=== PATIENT | female | born 1935 | race Caucasian/White ===

== ENCOUNTER 2020-07-20 09:58 | Inpatient (IN) | payer MEDICARE, BC ==
[~2020-07-20] VITALS: Ht 157.5 cm; Wt 42.9 kg
[2020-07-20] VITALS (25 sets, daily range): BP systolic 78–164; BP diastolic 32–90
[~2020-07-20 09:58] MED LIST: ASPI-630 PO; FURO-68 PO; LEVO500T59 PO; LISI-517 PO; METO-239 PO
[2020-07-20] MEDS ORDERED: MIDAZOLAM 100mg/100ml NS BAG 100 ML IV PRN (11:15)
[2020-07-20] MEDS ORDERED: NOREPINEPHRINE VIAL 8 MG in IV DEXTROSE 5% 250 ML IV PRN (11:15)
[2020-07-20 11:37] LABS: BASE EXCESS COOX -6 mmol/L (-3-3); HCO3 COOX 19 mmol/L (21-28); METHEMOGLOBIN 0.5 % (0.0-1.9); OXYHEMOGLOBIN 93.9 %; PCO2 COOX 39 mmHg (35-46); PO2 COOX 75 mmHg (65-108); SAT O2 COOX 95 % (92-99)
--- NOTE | 2020-07-20 12:04 | RAD ---
EXAM: CHEST ONE VIEW. HISTORY: Intubated, respiratory failure. COMPARISON: 01/01/2018. FINDINGS: A frontal view of the chest is obtained. An endotracheal tube has its tip 4 cm above the ca reece. A nasogastric tube has its proximal sidehole at the gastroesophageal junction, recommend advanc emmiranda. Prominence of the right heart border likely corresponds with aortic ectasia is noted on prior CT. Int erstitial infiltrates are consistent with mild pulmonary edema. Trace pleural effusions are suspected . There is no pneumothorax. The heart is not enlarged. IMPRESSION: 1. Mild pulmonary edema. Trace pleural effusions. 2. Prominence of the right heart border is likely secondary to an ascending aortic aneurysm as seen o n prior CT. CT could further evaluate if this remains unclear. 3. Recommend advancement of the nasogastric tube by 8 cm. Electronically signed by: Nadya Collins MD (07/20/2020 12:01 PM) [id number]
[2020-07-20 12:26] LABS: BASO # 0.1 x10^3/uL (0.0-0.2); BASO % 1 % (0-3); EOS % 0 % (0-3); HEMATOCRIT 31.9 % (36.0-47.0); HEMOGLOBIN 10.6 g/dL (12.0-15.5); LYMPH # 0.4 x10^3/uL (1.0-4.8); LYMPH % 3 % (24-48); MEAN CORPUSCULAR HEMOGLOBIN 29 pg (25-35); MEAN CORPUSCULAR HGB CONC 33 g/dL (31-37); MEAN CORPUSCULAR VOLUME 88 fL (79-100); MONO # 1.7 x10^3/uL (0.0-1.1); MONO % 11 % (0-9); NEUT # 12.8 x10^3/uL (1.8-7.7); NEUT % 86 % (31-73); PLATELET COUNT 220 x10^3/uL (140-400); RED BLOOD COUNT 3.64 x10^6/uL (3.50-5.40); RED CELL DISTRIBUTION WIDTH 15.3 % (11.5-14.5)
[2020-07-20 12:43] LABS: ALBUMIN 2.8 g/dL (3.4-5.0); ALBUMIN/GLOBULIN RATIO 1.1 (1.0-1.7); CREATININE 1.5 mg/dL (0.6-1.0); GFR 32.9; MAGNESIUM 1.6 mg/dL (1.8-2.4); POTASSIUM 3.6 mmol/L (3.5-5.1); TOTAL BILIRUBIN 0.2 mg/dL (0.2-1.0); TOTAL PROTEIN 5.4 g/dL (6.4-8.2)
--- NOTE | 2020-07-20 12:54 | NUR ---
Patient arrived on unit at 1045 via EMS. Patient non-responsive, will posture arms and legs to pain. Order received to redraw all labs, place arterial and central line, and sedation if necessary. Consults notified of admission. Family aware of admission, son at bedside to sign consents for central line.
[2020-07-20 12:55] LABS: PROTHROMBIN TIME PATIENT 14.6 SEC (11.7-14.0)
[2020-07-20] MEDS: levETIRAcetam 500 MG in IV DEXTROSE 5% 100ML 100 ML IV SCH ×2 (13:06→20:42)
[2020-07-20] MEDS: MIDAZOLAM 100mg/100ml NS BAG 100 ML IV PRN ×2 (13:10→21:59)
--- NOTE | 2020-07-20 13:10 | PDOC2 ---
CARDIOLOGY CONSULT NOTE DATE OF SERVICE: DATE: 07/20/20 TIME: 13:10 CHIEF COMPLAINT: Seizure versus syncope. HPI: 85 y.o woman with prior history of NICM, Ascending aortic aneurysm presents to the hospital after cardiac arrest from OSH. Currently intubated, sedated and having status epi.History limited. PMHX: as above SOCHX: Lives by herself. Her son and daughter help with chores. FAMHX: [place] CURRENT MEDS: CV meds reviewed ALLERGIES: Allergies Coded Allergies Type Severity Reaction Last Updated Verified Penicillins Allergy Intermediate 01/01/18 Yes ROS: Unable to be obtained. PHYSICAL EXAM: Vital Signs/I&O: Vital Signs Date Time Temp Pulse Resp B/P (MAP) Pulse Ox O2 Delivery O2 Flow Rate FiO2 07/20/20 12:41 98 Ventilator Physical Exam: Normal cardiac exam. Status epi Soft abdomen. DIAGNOSTIC TESTING: Labs and OSH records reviewed ASSESSMENT: 1. Anoxic brain injury 2. Status epi 3. Prior NICM, ascending aortic aneurysm PLAN: 1. EKG and troponin are not concerning for an acute cardiac process. 2. Await neurologic recovery. Discussed with family at bedside. SENIA CRUZ MD Jul 20, 2020 13:10
--- NOTE | 2020-07-20 13:34 | PDOC2 ---
NEUROLOGY CONSULT Date of Service DOS: DATE: 07/20/20 TIME: 13:26 Reason for Consult Reason for Consult: Post code Referring Physician Referring Physician: Dr. Partida Source Source: Caregiver (son), Chart review History of Present Illness History of Present Illness Patient is an 85-year-old right-handed female found in the [facility] parking lot facedown in a pool of blood, initially bradycardic with a pulse, later deteriorated into pulseless electrical activity. She was coded. Downtime was a few minutes at most. She was intubated. Review of close circuit TV showed patient backing in and out of several parking spots, appeared confused. She got out of her vehicle and appeared to be off balance, falling forward onto the left anterior head at 0555 hours. Appeared to be off balance falling forward onto left anterior head at 0555 hours. Patient found and recovered by ER staff at 0556 and immediately transported inside for evaluation. She has a known cardiomyopathy as well as ascending aortic aneurysm. There is no history of stroke, seizure, or head injury. Past Medical History Cardiovascular: Other (Cardiomyopathy, ascending aortic aneurysm) ENT: Other (Hard of hearing) Past Surgical History Past Surgical History: No pertinent history Family History Family History: Cancer Social History Social History , lives alone, no alcohol or tobacco Current Medications Current Medications Current Medications Midazolam HCl 100 ml @ 1 mls/hr CONT PRN IV SEE I/O RECORD; Start 07/20/20 at 11:30 Fentanyl Citrate 30 ml @ 0 mls/hr CONT PRN IV SEE PROTOCOL; Start 07/20/20 at 11:15 Norepinephrine Bitartrate 8 mg/ Dextrose 258 ml @ 7.372 mls/ hr CONT PRN IV PER PROTOCOL; Start 07/20/20 at 11:15 Fentanyl Citrate 30 ml @ 0 mls/hr CONT PRN IV SEE PROTOCOL; Start 07/20/20 at 11:15; Stop 07/20/20 at 11:13; Status DC Chlorhexidine Gluconate (Peridex) 15 ml BID MM ; Start 07/20/20 at 21:00 Midazolam HCl 100 ml @ 0 mls/hr CONT PRN IV SEE PROTOCOL; Start 07/20/20 at 11:15; Stop 07/20/20 at 11:13; Status DC Norepinephrine Bitartrate 8 mg/ Dextrose 258 ml @ 8.127 mls/ hr CONT PRN IV PER PROTOCOL; Start 07/20/20 at 11:15; Stop 07/20/20 at 11:13; Status DC Levetiracetam 500 mg/Dextrose 105 ml @ 420 mls/hr Q12HR IV ; Start 07/20/20 at 12:45 Active Scripts Active Levaquin (Levofloxacin) 500 Mg Tablet 1 Tab PO DAILY 7 Days Lasix (Furosemide) 40 Mg Tablet 1 Tab PO DAILY 30 Days Aspirin 81 Mg Tab.chew 1 Tab PO DAILY 30 Days Metoprolol Succinate ( Xl ) (Metoprolol Succinate) 25 Mg Tab.er.24h 1 Tab PO DAILY 30 Days Lisinopril 5 Mg Tablet 1 Tab PO DAILY 3 Days Allergies Allergies: Coded Allergies: Penicillins (Verified Allergy, Intermediate, 01/01/18) ROS Review of System Negative for fever, chills, weight loss, shortness of breath, chest pain, indigestion, hematochezia, melena, and dysuria. Full 14-point review of systems is negative. Physical Exam Physical Examination General: Well-developed, well-nourished white female in no acute distress HEENT: Normocephalic andatraumatic. Temporal arteriespulsatile and nontender. Neck: Supple without bruit, no meningismus Musculoskeletal: Stability:see neurologic. Gait exam:see neurologic. Tone:see neurologic.Strength:see neurologic. Neurological: Mental Status:orientation, memory, attention span/concentration, language, fund of knowledge: Intubated, no verbal response. Cranial Nerves:Pupils equal and reactive to light, extraocular movements areintact, There is no facial asymmetry.All other cranial related problems are negative except as mentioned before.Reflexes:2+ and symmetric with silent plantar responses. Motor:Postures to pain. Coordination and gait:Not cooperative. Sensory:Not co operative. Vitals VITALS Vital Signs Date Time Temp Pulse Resp B/P (MAP) Pulse Ox O2 Delivery O2 Flow Rate FiO2 07/20/20 13:00 96 18 154/58 (90) 98 Ventilator 07/20/20 10:45 99.0 99.0 Labs Labs [facility] labs Test 07/20/20 06:01 07/20/20 06:03 07/20/20 06:28 07/20/20 06:45 Glucose (Fingerstick) 95 mg/dL Sodium Level 146 mmol/L Potassium Level 4.2 mmol/L Chloride Level 108 mmol/L Carbon Dioxide Level 17 mmol/L Anion Gap 21 Blood Urea Nitrogen 16 mg/dL Creatinine 1.5 mg/dL Estimated GFR (Cockcroft-Gault) 32.9 BUN/Creatinine Ratio 11 Glucose Level 186 mg/dL Calcium Level 9.4 mg/dL Total Bilirubin 0.3 mg/dL Aspartate Amino Transf (AST/SGOT) 28 U/L Alanine Aminotransferase (ALT/SGPT) 34 U/L Alkaline Phosphatase 88 U/L Troponin I Quantitative 0.029 ng/mL HT-Mey-C-Type Natriuretic Peptide 70461 pg/mL Total Protein 7.3 g/dL Albumin 3.5 g/dL Albumin/Globulin Ratio 0.9 Urine Opiates Screen Neg Urine Methadone Screen Neg Urine Barbiturates Neg Urine Phencyclidine Screen Neg Urine Amphetamine/Methamphetamine Neg Urine Benzodiazepines Screen Neg Urine Cocaine Screen Neg Urine Cannabinoids Screen Neg Urine Ethyl Alcohol Neg White Blood Count 8.1 x10^3/uL Red Blood Count 3.35 x10^6/uL Hemoglobin 9.9 g/dL Hematocrit 31.6 % Mean Corpuscular Volume 94 fL Mean Corpuscular Hemoglobin 30 pg Mean Corpuscular Hemoglobin Concent 31 g/dL Red Cell Distribution Width 15.8 % Platelet Count 173 x10^3/uL Neutrophils (%) (Auto) 38 % Lymphocytes (%) (Auto) 53 % Monocytes (%) (Auto) 6 % Eosinophils (%) (Auto) 3 % Basophils (%) (Auto) 1 % Neutrophils # (Auto) 3.1 x10^3uL Lymphocytes # (Auto) 4.3 x10^3/uL Monocytes # (Auto) 0.5 x10^3/uL Eosinophils # (Auto) 0.2 x10^3/uL Basophils # (Auto) 0.1 x10^3/uL Segmented Neutrophils % 30 % Band Neutrophils % 2 % Lymphocytes % 64 % Monocytes % 2 % Eosinophils % 1 % Metamyelocytes % 1 % Platelet Estimate Adequate Prothrombin Time 12.4 SEC Prothromb Time International Ratio 1.2 Activated Partial Thromboplast Time 35 SEC Test 07/20/20 07:35 Blood Gas pH 7.26 Blood Gas PCO2 31 mmHg Blood Gas PO2 94 mmHg Blood Gas HCO3 14 mmol/L Arterial Bld O2 Saturation (Calc) 97 % FiO2 50 % Laboratory Tests Test 07/20/20 11:05 6/10/21 12:10 O2 Saturation 95 % (92-99) Arterial Blood pH 7.32 (7.35-7.45) Arterial Blood pCO2 at Patient Temp 39 mmHg (35-46) Arterial Blood pO2 at Patient Temp 75 mmHg (65-108) Arterial Blood HCO3 19 mmol/L (21-28) Arterial Blood Base Excess -6 mmol/L (-3-3) Oxyhemoglobin 93.9 % Methemoglobin 0.5 % (0.0-1.9) Carbon Monoxide, Quantitative 0.3 % (0.0-1.9) FiO2 100%vent White Blood Count 15.0 x10^3/uL (4.0-11.0) Red Blood Count 3.64 x10^6/uL (3.50-5.40) Hemoglobin 10.6 g/dL (12.0-15.5) Hematocrit 31.9 % (36.0-47.0) Mean Corpuscular Volume 88 fL (79-100) Mean Corpuscular Hemoglobin 29 pg (25-35) Mean Corpuscular Hemoglobin Concent 33 g/dL (31-37) Red Cell Distribution Width 15.3 % (11.5-14.5) Platelet Count 220 x10^3/uL (140-400) Neutrophils (%) (Auto) 86 % (31-73) Lymphocytes (%) (Auto) 3 % (24-48) Monocytes (%) (Auto) 11 % (0-9) Eosinophils (%) (Auto) 0 % (0-3) Basophils (%) (Auto) 1 % (0-3) Neutrophils # (Auto) 12.8 x10^3/uL (1.8-7.7) Lymphocytes # (Auto) 0.4 x10^3/uL (1.0-4.8) Monocytes # (Auto) 1.7 x10^3/uL (0.0-1.1) Eosinophils # (Auto) 0.0 x10^3/uL (0.0-0.7) Basophils # (Auto) 0.1 x10^3/uL (0.0-0.2) Prothrombin Time 14.6 SEC (11.7-14.0) Prothromb Time International Ratio 1.1 (0.8-1.1) Sodium Level 146 mmol/L (136-145) Potassium Level 3.6 mmol/L (3.5-5.1) Chloride Level 112 mmol/L (98-107) Carbon Dioxide Level 21 mmol/L (21-32) Anion Gap 13 (6-14) Blood Urea Nitrogen 19 mg/dL (7-20) Creatinine 1.5 mg/dL (0.6-1.0) Estimated GFR (Cockcroft-Gault) 32.9 BUN/Creatinine Ratio 13 (6-20) Glucose Level 255 mg/dL (70-99) Lactic Acid Level 3.4 mmol/L (0.4-2.0) Calcium Level 7.0 mg/dL (8.5-10.1) Magnesium Level 1.6 mg/dL (1.8-2.4) Total Bilirubin 0.2 mg/dL (0.2-1.0) Aspartate Amino Transf (AST/SGOT) 252 U/L (15-37) Alanine Aminotransferase (ALT/SGPT) 270 U/L (14-59) Alkaline Phosphatase 78 U/L (46-116) Troponin I Quantitative 0.196 ng/mL (0.000-0.055) Total Protein 5.4 g/dL (6.4-8.2) Albumin 2.8 g/dL (3.4-5.0) Albumin/Globulin Ratio 1.1 (1.0-1.7) Laboratory Tests Test 07/20/20 11:05 07/20/20 12:10 O2 Saturation 95 % (92-99) Arterial Blood pH 7.32 (7.35-7.45) Arterial Blood pCO2 at Patient Temp 39 mmHg (35-46) Arterial Blood pO2 at Patient Temp 75 mmHg (65-108) Arterial Blood HCO3 19 mmol/L (21-28) Arterial Blood Base Excess -6 mmol/L (-3-3) Oxyhemoglobin 93.9 % Methemoglobin 0.5 % (0.0-1.9) Carbon Monoxide, Quantitative 0.3 % (0.0-1.9) FiO2 100%vent White Blood Count 15.0 x10^3/uL (4.0-11.0) Red Blood Count 3.64 x10^6/uL (3.50-5.40) Hemoglobin 10.6 g/dL (12.0-15.5) Hematocrit 31.9 % (36.0-47.0) Mean Corpuscular Volume 88 fL (79-100) Mean Corpuscular Hemoglobin 29 pg (25-35) Mean Corpuscular Hemoglobin Concent 33 g/dL (31-37) Red Cell Distribution Width 15.3 % (11.5-14.5) Platelet Count 220 x10^3/uL (140-400) Neutrophils (%) (Auto) 86 % (31-73) Lymphocytes (%) (Auto) 3 % (24-48) Monocytes (%) (Auto) 11 % (0-9) Eosinophils (%) (Auto) 0 % (0-3) Basophils (%) (Auto) 1 % (0-3) Neutrophils # (Auto) 12.8 x10^3/uL (1.8-7.7) Lymphocytes # (Auto) 0.4 x10^3/uL (1.0-4.8) Monocytes # (Auto) 1.7 x10^3/uL (0.0-1.1) Eosinophils # (Auto) 0.0 x10^3/uL (0.0-0.7) Basophils # (Auto) 0.1 x10^3/uL (0.0-0.2) Prothrombin Time 14.6 SEC (11.7-14.0) Prothromb Time International Ratio 1.1 (0.8-1.1) Sodium Level 146 mmol/L (136-145) Potassium Level 3.6 mmol/L (3.5-5.1) Chloride Level 112 mmol/L (98-107) Carbon Dioxide Level 21 mmol/L (21-32) Anion Gap 13 (6-14) Blood Urea Nitrogen 19 mg/dL (7-20) Creatinine 1.5 mg/dL (0.6-1.0) Estimated GFR (Cockcroft-Gault) 32.9 BUN/Creatinine Ratio 13 (6-20) Glucose Level 255 mg/dL (70-99) Lactic Acid Level 3.4 mmol/L (0.4-2.0) Calcium Level 7.0 mg/dL (8.5-10.1) Magnesium Level 1.6 mg/dL (1.8-2.4) Total Bilirubin 0.2 mg/dL (0.2-1.0) Aspartate Amino Transf (AST/SGOT) 252 U/L (15-37) Alanine Aminotransferase (ALT/SGPT) 270 U/L (14-59) Alkaline Phosphatase 78 U/L (46-116) Troponin I Quantitative 0.196 ng/mL (0.000-0.055) Total Protein 5.4 g/dL (6.4-8.2) Albumin 2.8 g/dL (3.4-5.0) Albumin/Globulin Ratio 1.1 (1.0-1.7) Images Images [facility] radiographs: CT head: Study degradation in part on account of motion. No acute intracranial hemorrhage. No mass effect, midline shift or hydrocephalus. No CT evidence for an acute cortical infarction. White matter findings which are nonspecific but most frequently on account of chronic microvascular ischemic change. Intracranial calcific atherosclerosis. Left scalp injury with a localized hematoma at the left frontal region. No depressed calvarial fracture. CT cervical spine: Mild motion degradation. Noting osteopenia no acute cervical spine fracture. Reversal of cervical lordosis centered at C4-C5. Severe discogenic arthrosis at C4-C5. Less pronounced discogenic arthrosis at C3-C4, C5-C6 and C6-C7. Grade 1 anterolisthesis of C3 on C4. Multilevel facet arthrosis and uncovertebral joint hypertrophy. No evidence for severe central canal stenosis. No paraspinous hematoma. Nasogastric and endotracheal intubation. IMPRESSION: CT head: 1. Motion degradation. Diagnostic utility is mostly maintained. 2. Scalp injury on the left without an associated depressed calvarial fracture or acute intracranial hemorrhage. CT cervical spine: 1. Mild motion degradation. Taking this into consideration in addition to osteopenia no acute fracture. No paraspinous hematoma is identified to suggest occult osseous injury. 2. Multilevel spondylosis greatest at C4-C5. No evidence for severe central canal stenosis. Electronically signed by: VEGA MUNOZ MD (07/20/2020 7:32 AM) [facility] ////////////////////////////// EXAMINATION: CT chest, abdomen and pelvis with IV contrast. INDICATION:85 years, Female, falling down, left for head hematoma. Evaluate for intrathoracic and abdominal injury. TECHNIQUE: Axial CT images of the chest, abdomen and pelvis were obtained. Coronal and sagittal reformatted performed. COMPARISON: None. Exposure: One or more of the following individualized dose reduction techniques were utilized for this examination: 1. Automated exposure control 2. Adjustment of the mA and/or kV according to patient size 3. Use of iterative reconstruction technique. FINDINGS: CHEST: Visualized thyroid and esophagus are unremarkable. Enteric tube seen within the esophagus with the tip terminates within the proximal stomach. Cardiomegaly with trace pericardial effusion. Mild coronary artery atherosclerotic calcifications. Ascending aortic aneurysm measures up to 5.0 cm. Mild atherosclerotic calcifications of the thoracic aorta. Pulmonary artery is normal in caliber. No intrathoracic lymphadenopathy by size criteria. Few calcified mediastinal lymph nodes. Endotracheal tube tip locates above the janina. Central airways are patent. Moderate right and small left pleural effusions with associated compressive atelectasis. Diffuse interlobular septal thickening with a mosaic attenuation and groundglass opacities, particularly in the left upper lobe. Bibasilar subsegmental atelectasis. No suspicious pulmonary nodule. Diffuse bronchial wall thickening in the lower lobes. No pneumothorax. ABDOMEN/PELVIS: No hepatomegaly. Normal homogeneous enhancement of the liver with no suspicious focal hepatic lesion. Moderate periportal edema. Unremarkable gallbladder. No biliary ductal dilation. Calcified granulomas in the spleen. Moderate atrophic pancreatic parenchyma. Nodular thickening of the left gland without discrete nodule. The right adrenal gland is normal. No hydronephrosis or nephrolithiasis in either kidney. Moderate aortoiliac atherosclerotic calcifications. No significant luminal narrowing or dilation. Distended intrahepatic IVC. Portal vein and mesenteric arteries are patent. No abdominopelvic lymphadenopathy by size criteria. Small abdominal ascites. No pneumoperitoneum. No bowel obstructio n or wall thickening. Underdistended urinary bladder with Garcia's catheter in place and nondependent gas. Unremarkable uterus. No suspicious pelvic masses. MUSCULOSKELETAL: Lucent line in the lateral aspect of the left third rib (series 4 image 25). Dif fuse osteopenia. Severe multilevel degenerative changes in the spine. Moderate dextroscoliosis of lumbar spine. IMPRESSION: 1. Lucent line along the lateral aspect of the left third rib, may be artifactual from motion artifact or nondisplaced fracture. Consider correlation with point of tenderness. 2. Otherwise, no acute traumatic injury to the chest, abdomen or pelvis. 3. Findings of fluid overload with moderate to severe pulmonary edema, moderate right and small left pleural effusions, periportal edema and trace amount of abdominal ascites. Underlying pneumonia in left upper lobe cannot be excluded. 4. Ascending aortic aneurysm measures up to 5.0 cm in diameter. 5. Other chronic/incidental finding, as described above. Assessment/Plan Assessment/Plan Impression Anoxic encephalopathy After I saw the patient she had seizure activity Recommendations: Was not placed on hypothermia protocol Levetiracetam Discussed with patient's son Thank you for letting me help with the patient's care ANUEL BOLES MD Jul 20, 2020 13:34
--- NOTE | 2020-07-20 13:50 | PDOC ---
PULMONARY PROGRESS NOTES DATE: 07/20/20 TIME: 13:50 Vitals Vital Signs Date Time Temp Pulse Resp B/P (MAP) Pulse Ox O2 Delivery O2 Flow Rate FiO2 07/20/20 13:17 98 Ventilator 07/20/20 13:00 96 18 154/58 (90) 07/20/20 10:45 99.0 99.0 Labs Laboratory Tests Test 07/20/20 11:05 07/20/20 12:10 O2 Saturation 95 % (92-99) Arterial Blood pH 7.32 (7.35-7.45) Arterial Blood pCO2 at Patient Temp 39 mmHg (35-46) Arterial Blood pO2 at Patient Temp 75 mmHg (65-108) Arterial Blood HCO3 19 mmol/L (21-28) Arterial Blood Base Excess -6 mmol/L (-3-3) Oxyhemoglobin 93.9 % Methemoglobin 0.5 % (0.0-1.9) Carbon Monoxide, Quantitative 0.3 % (0.0-1.9) FiO2 100%vent White Blood Count 15.0 x10^3/uL (4.0-11.0) Red Blood Count 3.64 x10^6/uL (3.50-5.40) Hemoglobin 10.6 g/dL (12.0-15.5) Hematocrit 31.9 % (36.0-47.0) Mean Corpuscular Volume 88 fL (79-100) Mean Corpuscular Hemoglobin 29 pg (25-35) Mean Corpuscular Hemoglobin Concent 33 g/dL (31-37) Red Cell Distribution Width 15.3 % (11.5-14.5) Platelet Count 220 x10^3/uL (140-400) Neutrophils (%) (Auto) 86 % (31-73) Lymphocytes (%) (Auto) 3 % (24-48) Monocytes (%) (Auto) 11 % (0-9) Eosinophils (%) (Auto) 0 % (0-3) Basophils (%) (Auto) 1 % (0-3) Neutrophils # (Auto) 12.8 x10^3/uL (1.8-7.7) Lymphocytes # (Auto) 0.4 x10^3/uL (1.0-4.8) Monocytes # (Auto) 1.7 x10^3/uL (0.0-1.1) Eosinophils # (Auto) 0.0 x10^3/uL (0.0-0.7) Basophils # (Auto) 0.1 x10^3/uL (0.0-0.2) Prothrombin Time 14.6 SEC (11.7-14.0) Prothromb Time International Ratio 1.1 (0.8-1.1) Sodium Level 146 mmol/L (136-145) Potassium Level 3.6 mmol/L (3.5-5.1) Chloride Level 112 mmol/L (98-107) Carbon Dioxide Level 21 mmol/L (21-32) Anion Gap 13 (6-14) Blood Urea Nitrogen 19 mg/dL (7-20) Creatinine 1.5 mg/dL (0.6-1.0) Estimated GFR (Cockcroft-Gault) 32.9 BUN/Creatinine Ratio 13 (6-20) Glucose Level 255 mg/dL (70-99) Lactic Acid Level 3.4 mmol/L (0.4-2.0) Calcium Level 7.0 mg/dL (8.5-10.1) Magnesium Level 1.6 mg/dL (1.8-2.4) Total Bilirubin 0.2 mg/dL (0.2-1.0) Aspartate Amino Transf (AST/SGOT) 252 U/L (15-37) Alanine Aminotransferase (ALT/SGPT) 270 U/L (14-59) Alkaline Phosphatase 78 U/L (46-116) Troponin I Quantitative 0.196 ng/mL (0.000-0.055) Total Protein 5.4 g/dL (6.4-8.2) Albumin 2.8 g/dL (3.4-5.0) Albumin/Globulin Ratio 1.1 (1.0-1.7) Laboratory Tests Test 07/20/20 11:05 07/20/20 12:10 O2 Saturation 95 % (92-99) Arterial Blood pH 7.32 (7.35-7.45) Arterial Blood pCO2 at Patient Temp 39 mmHg (35-46) Arterial Blood pO2 at Patient Temp 75 mmHg (65-108) Arterial Blood HCO3 19 mmol/L (21-28) Arterial Blood Base Excess -6 mmol/L (-3-3) Oxyhemoglobin 93.9 % Methemoglobin 0.5 % (0.0-1.9) Carbon Monoxide, Quantitative 0.3 % (0.0-1.9) FiO2 100%vent White Blood Count 15.0 x10^3/uL (4.0-11.0) Red Blood Count 3.64 x10^6/uL (3.50-5.40) Hemoglobin 10.6 g/dL (12.0-15.5) Hematocrit 31.9 % (36.0-47.0) Mean Corpuscular Volume 88 fL (79-100) Mean Corpuscular Hemoglobin 29 pg (25-35) Mean Corpuscular Hemoglobin Concent 33 g/dL (31-37) Red Cell Distribution Width 15.3 % (11.5-14.5) Platelet Count 220 x10^3/uL (140-400) Neutrophils (%) (Auto) 86 % (31-73) Lymphocytes (%) (Auto) 3 % (24-48) Monocytes (%) (Auto) 11 % (0-9) Eosinophils (%) (Auto) 0 % (0-3) Basophils (%) (Auto) 1 % (0-3) Neutrophils # (Auto) 12.8 x10^3/uL (1.8-7.7) Lymphocytes # (Auto) 0.4 x10^3/uL (1.0-4.8) Monocytes # (Auto) 1.7 x10^3/uL (0.0-1.1) Eosinophils # (Auto) 0.0 x10^3/uL (0.0-0.7) Basophils # (Auto) 0.1 x10^3/uL (0.0-0.2) Prothrombin Time 14.6 SEC (11.7-14.0) Prothromb Time International Ratio 1.1 (0.8-1.1) Sodium Level 146 mmol/L (136-145) Potassium Level 3.6 mmol/L (3.5-5.1) Chloride Level 112 mmol/L (98-107) Carbon Dioxide Level 21 mmol/L (21-32) Anion Gap 13 (6-14) Blood Urea Nitrogen 19 mg/dL (7-20) Creatinine 1.5 mg/dL (0.6-1.0) Estimated GFR (Cockcroft-Gault) 32.9 BUN/Creatinine Ratio 13 (6-20) Glucose Level 255 mg/dL (70-99) Lactic Acid Level 3.4 mmol/L (0.4-2.0) Calcium Level 7.0 mg/dL (8.5-10.1) Magnesium Level 1.6 mg/dL (1.8-2.4) Total Bilirubin 0.2 mg/dL (0.2-1.0) Aspartate Amino Transf (AST/SGOT) 252 U/L (15-37) Alanine Aminotransferase (ALT/SGPT) 270 U/L (14-59) Alkaline Phosphatase 78 U/L (46-116) Troponin I Quantitative 0.196 ng/mL (0.000-0.055) Total Protein 5.4 g/dL (6.4-8.2) Albumin 2.8 g/dL (3.4-5.0) Albumin/Globulin Ratio 1.1 (1.0-1.7) Medications Active Scripts Medications Dose Route/Sig Max Daily Dose Days Date Category Levaquin (Levofloxacin) 500 Mg Tablet 1 Tab PO DAILY 7 01/03/18 Rx Lasix (Furosemide) 40 Mg Tablet 1 Tab PO DAILY 30 01/03/18 Rx Aspirin 81 Mg Tab.chew 1 Tab PO DAILY 30 01/03/18 Rx Metoprolol Succinate ( Xl ) (Metoprolol Succinate) 25 Mg Tab.er.24h 1 Tab PO DAILY 30 01/03/18 Rx Lisinopril 5 Mg Tablet 1 Tab PO DAILY 3 01/03/18 Rx Impression . Full note dictated Respiratory failure secondary to out of hospital arrest suspect arrhythmia Patient with known cardiomyopathy Acute on chronic systolic heart failure Suspect anoxic brain injury leading to seizures. See orders CLAUDIA PEREIRA MD Jul 20, 2020 13:50
[2020-07-20 14:12] LABS: % BANDS 15 % (0-9); % LYMPHS 1 % (24-48); % MONOS 10 % (0-10); % SEGS 74 % (35-66); PLT ESTIMATE ADEQUATE (ADEQUATE)
[2020-07-20] MEDS ORDERED: LIDOCAINE WITH 8.4% SOD BICARB 3 ML DISP.SYRIN. INJ ONE (14:15)
--- NOTE | 2020-07-20 15:21 | RAD ---
Procedure: Ultrasound-guided placement of right internal jugular triple-lumen central line Sterility: All elements of maximal sterile barrier technique including the use of a cap, mask, steril e gown, sterile gloves, large sterile sheet, appropriate hand hygiene, and 2% chlorhexidine for cutan eous antisepsis (or acceptable alternative antiseptic per current guidelines) were followed for this procedure. Consent: The procedure was explained in its entirety to the patient or the patients designated repres entative by a member of the treatment team, including a discussion of the risks, benefits and commonl y accepted alternatives to the procedure, as well as the expected consequences of no therapy whatsoev er. Discussion of the risks included, but was not limited to, those that are most frequent and thos e that are rare but possibly severe or life-threatening, as well as the possibility of unforeseen com plications. Technique and Findings: Following informed consent, the patient was prepped and draped in the usual s terile fashion. Ultrasound interrogation of the right neck revealed patency and compressibility of t he right internal jugular vein. A 21-gauge micropuncture was then used to gain access to this vein u nder ultrasound guidance. A hard copy ultrasound image was recorded. A guidewire was advanced centra lly over which, following dilatation, a triple-lumen central line catheter was placed. The new chuy ter was found to flush and aspirate normally. The catheter was secured in place. Sterile dressings we re applied. No immediate complications were identified. IMPRESSION: Ultrasound-guided placement, right internal jugular triple-lumen central line Electronically signed by: Meliton Roland MD (07/20/2020 3:18 PM) [id number]
--- NOTE | 2020-07-20 15:36 | RAD ---
EXAM: XR CHEST 1V 07/20/2020 2:18 PM CLINICAL INDICATION: Post central line placement COMPARISON: Chest radiograph 07/20/2020 at 11:43 AM TECHNIQUE: AP supine view of the chest FINDINGS: The endotracheal tube is unchanged terminating 4 cm above the janina. A new right internal jugular central venous catheter tip projects over the high right atrium. The heart is normal in size . Prominence of right heart border is less conspicuous on this exam. Lungs are hyperexpanded. Diffuse interstitial opacities have slightly decreased. No pleural effusion or pneumothorax. Probable calcif ied granulomas in the lung bases. There is pleural thickening at the lung apices. IMPRESSION: 1. New right internal jugular central venous catheter in appropriate position. No pneumothorax. 2. Slightly decreased interstitial opacities and prominence of right heart border. Electronically signed by: Yessica Orellana MD (07/20/2020 3:34 PM) [id number]
--- NOTE | 2020-07-20 17:02 | PDOC1 ---
History and Physical Date of Admission Date of Admission DATE: 07/20/20 TIME: 16:53 Identification/Chief Complaint Chief Complaint Post Code Source Source: Chart review History of Present Illness History of Present Illness Patient is a 85-year-old female presents as a transfer from [facility] ER status post code. Discussed with [facility] ER attending, not much is known about patient but she was found in ER per him face down in for blood. Upon evaluation at [facility] she was nonverbal with GCS 3. She presented and PEA and patient coded appropriately. Labs from [facility] showed sodium 146, bicarbonate 17, creatinine 1.5, BNP 10,057, hemoglobin 9.9, hematocrit 31.6, lactic acid 7.5, pH 7.29, PCO2 39, PO2 68. She was coded for roughly 15 minutes, treated with 2 L normal saline, and then intubated on epinephrine drip. Will admit patient to ICU for further medical management. Past Medical History Past Medical History Unable to obtain at this time due to clinical condition Cardiovascular: Other (Cardiomyopathy, ascending aortic aneurysm) ENT: Other (Hard of hearing) Past Surgical History Past Surgical History Unable to obtain at this time due to clinical condition Past Surgical History: No pertinent history Family History Family History Per chart review, anxiety disorder, asthma, cancer Social History Smoke: No ALCOHOL: occassional Drugs: None Current Medications Current Medications Current Medications Midazolam HCl 100 ml @ 1 mls/hr CONT PRN IV SEE I/O RECORD Last administered on 07/20/20at 13:10; Start 07/20/20 at 11:30 Fentanyl Citrate 30 ml @ 0 mls/hr CONT PRN IV SEE PROTOCOL Last administered on 07/20/20at 13:17; Start 07/20/20 at 11:15 Norepinephrine Bitartrate 8 mg/ Dextrose 258 ml @ 7.372 mls/ hr CONT PRN IV PER PROTOCOL Last administered on 07/20/20at 13:27; Start 07/20/20 at 11:15 Fentanyl Citrate 30 ml @ 0 mls/hr CONT PRN IV SEE PROTOCOL; Start 07/20/20 at 11:15; Stop 07/20/20 at 11:13; Status DC Chlorhexidine Gluconate (Peridex) 15 ml BID MM ; Start 07/20/20 at 21:00 Midazolam HCl 100 ml @ 0 mls/hr CONT PRN IV SEE PROTOCOL; Start 07/20/20 at 11:15; Stop 07/20/20 at 11:13; Status DC Norepinephrine Bitartrate 8 mg/ Dextrose 258 ml @ 8.127 mls/ hr CONT PRN IV PER PROTOCOL; Start 07/20/20 at 11:15; Stop 07/20/20 at 11:13; Status DC Levetiracetam 500 mg/Dextrose 105 ml @ 420 mls/hr Q12HR IV Last administered on 07/20/20at 13:06; Start 07/20/20 at 12:45 Lidocaine HCl (Buffered Lidocaine 1%) 3 ml 1X ONCE INJ ; Start 07/20/20 at 14:15; Stop 07/20/20 at 14:16; Status DC Lorazepam (Ativan Inj) 2 mg STK-MED ONCE .ROUTE ; Start 07/20/20 at 15:41; Stop 07/20/20 at 15:42; Status DC Lorazepam (Ativan Inj) 2 mg 1X ONCE IVP Last administered on 07/20/20at 16:05; Start 07/20/20 at 16:30; Stop 07/20/20 at 16:31; Status DC Active Scripts Active Levaquin (Levofloxacin) 500 Mg Tablet 1 Tab PO DAILY 7 Days Lasix (Furosemide) 40 Mg Tablet 1 Tab PO DAILY 30 Days Aspirin 81 Mg Tab.chew 1 Tab PO DAILY 30 Days Metoprolol Succinate ( Xl ) (Metoprolol Succinate) 25 Mg Tab.er.24h 1 Tab PO DAILY 30 Days Lisinopril 5 Mg Tablet 1 Tab PO DAILY 3 Days Allergies Allergies: Coded Allergies: Penicillins (Verified Allergy, Intermediate, 01/01/18) ROS Review of System Unable to obtain due to clinical condition Physical Exam Physical Exam General: Intubated on mechanical ventilator. No acute distress HEENT: Mild hematoma to left forehead, people equal, round, and minimally reactive to light Lungs: Clear to auscultation, Normal air movement Heart: RRR, no murmurs Cardiovascular: S1, S2 Abdomen: Normal bowel sounds, Soft, No tenderness Extremities: No clubbing, No cyanosis Skin: No rashes, No significant lesion Neuro: Normal tone Psych/Mental Status: Sedated Vitals Vitals Vital Signs Date Time Temp Pulse Resp B/P (MAP) Pulse Ox O2 Delivery O2 Flow Rate FiO2 07/20/20 15:45 98 Ventilator 07/20/20 14:00 94 18 128/73 (91) 07/20/20 10:45 99.0 99.0 Labs Labs Laboratory Tests Test 07/20/20 11:05 07/20/20 12:10 07/20/20 15:20 O2 Saturation 95 % (92-99) Arterial Blood pH 7.32 (7.35-7.45) Arterial Blood pCO2 at Patient Temp 39 mmHg (35-46) Arterial Blood pO2 at Patient Temp 75 mmHg (65-108) Arterial Blood HCO3 19 mmol/L (21-28) Arterial Blood Base Excess -6 mmol/L (-3-3) Oxyhemoglobin 93.9 % Methemoglobin 0.5 % (0.0-1.9) Carbon Monoxide, Quantitative 0.3 % (0.0-1.9) FiO2 100%vent White Blood Count 15.0 x10^3/uL (4.0-11.0) Red Blood Count 3.64 x10^6/uL (3.50-5.40) Hemoglobin 10.6 g/dL (12.0-15.5) Hematocrit 31.9 % (36.0-47.0) Mean Corpuscular Volume 88 fL (79-100) Mean Corpuscular Hemoglobin 29 pg (25-35) Mean Corpuscular Hemoglobin Concent 33 g/dL (31-37) Red Cell Distribution Width 15.3 % (11.5-14.5) Platelet Count 220 x10^3/uL (140-400) Neutrophils (%) (Auto) 86 % (31-73) Lymphocytes (%) (Auto) 3 % (24-48) Monocytes (%) (Auto) 11 % (0-9) Eosinophils (%) (Auto) 0 % (0-3) Basophils (%) (Auto) 1 % (0-3) Neutrophils # (Auto) 12.8 x10^3/uL (1.8-7.7) Lymphocytes # (Auto) 0.4 x10^3/uL (1.0-4.8) Monocytes # (Auto) 1.7 x10^3/uL (0.0-1.1) Eosinophils # (Auto) 0.0 x10^3/uL (0.0-0.7) Basophils # (Auto) 0.1 x10^3/uL (0.0-0.2) Segmented Neutrophils % 74 % (35-66) Band Neutrophils % 15 % (0-9) Lymphocytes % 1 % (24-48) Monocytes % 10 % (0-10) Platelet Estimate Adequate (ADEQUATE) Prothrombin Time 14.6 SEC (11.7-14.0) Prothromb Time International Ratio 1.1 (0.8-1.1) Sodium Level 146 mmol/L (136-145) Potassium Level 3.6 mmol/L (3.5-5.1) Chloride Level 112 mmol/L (98-107) Carbon Dioxide Level 21 mmol/L (21-32) Anion Gap 13 (6-14) Blood Urea Nitrogen 19 mg/dL (7-20) Creatinine 1.5 mg/dL (0.6-1.0) Estimated GFR (Cockcroft-Gault) 32.9 BUN/Creatinine Ratio 13 (6-20) Glucose Level 255 mg/dL (70-99) Lactic Acid Level 3.4 mmol/L (0.4-2.0) 3.7 mmol/L (0.4-2.0) Calcium Level 7.0 mg/dL (8.5-10.1) Magnesium Level 1.6 mg/dL (1.8-2.4) Total Bilirubin 0.2 mg/dL (0.2-1.0) Aspartate Amino Transf (AST/SGOT) 252 U/L (15-37) Alanine Aminotransferase (ALT/SGPT) 270 U/L (14-59) Alkaline Phosphatase 78 U/L (46-116) Troponin I Quantitative 0.196 ng/mL (0.000-0.055) Total Protein 5.4 g/dL (6.4-8.2) Albumin 2.8 g/dL (3.4-5.0) Albumin/Globulin Ratio 1.1 (1.0-1.7) Laboratory Tests Test 07/20/20 11:05 07/20/20 12:10 07/20/20 15:20 O2 Saturation 95 % (92-99) Arterial Blood pH 7.32 (7.35-7.45) Arterial Blood pCO2 at Patient Temp 39 mmHg (35-46) Arterial Blood pO2 at Patient Temp 75 mmHg (65-108) Arterial Blood HCO3 19 mmol/L (21-28) Arterial Blood Base Excess -6 mmol/L (-3-3) Oxyhemoglobin 93.9 % Methemoglobin 0.5 % (0.0-1.9) Carbon Monoxide, Quantitative 0.3 % (0.0-1.9) FiO2 100%vent White Blood Count 15.0 x10^3/uL (4.0-11.0) Red Blood Count 3.64 x10^6/uL (3.50-5.40) Hemoglobin 10.6 g/dL (12.0-15.5) Hematocrit 31.9 % (36.0-47.0) Mean Corpuscular Volume 88 fL (79-100) Mean Corpuscular Hemoglobin 29 pg (25-35) Mean Corpuscular Hemoglobin Concent 33 g/dL (31-37) Red Cell Distribution Width 15.3 % (11.5-14.5) Platelet Count 220 x10^3/uL (140-400) Neutrophils (%) (Auto) 86 % (31-73) Lymphocytes (%) (Auto) 3 % (24-48) Monocytes (%) (Auto) 11 % (0-9) Eosinophils (%) (Auto) 0 % (0-3) Basophils (%) (Auto) 1 % (0-3) Neutrophils # (Auto) 12.8 x10^3/uL (1.8-7.7) Lymphocytes # (Auto) 0.4 x10^3/uL (1.0-4.8) Monocytes # (Auto) 1.7 x10^3/uL (0.0-1.1) Eosinophils # (Auto) 0.0 x10^3/uL (0.0-0.7) Basophils # (Auto) 0.1 x10^3/uL (0.0-0.2) Segmented Neutrophils % 74 % (35-66) Band Neutrophils % 15 % (0-9) Lymphocytes % 1 % (24-48) Monocytes % 10 % (0-10) Platelet Estimate Adequate (ADEQUATE) Prothrombin Time 14.6 SEC (11.7-14.0) Prothromb Time International Ratio 1.1 (0.8-1.1) Sodium Level 146 mmol/L (136-145) Potassium Level 3.6 mmol/L (3.5-5.1) Chloride Level 112 mmol/L (98-107) Carbon Dioxide Level 21 mmol/L (21-32) Anion Gap 13 (6-14) Blood Urea Nitrogen 19 mg/dL (7-20) Creatinine 1.5 mg/dL (0.6-1.0) Estimated GFR (Cockcroft-Gault) 32.9 BUN/Creatinine Ratio 13 (6-20) Glucose Level 255 mg/dL (70-99) Lactic Acid Level 3.4 mmol/L (0.4-2.0) 3.7 mmol/L (0.4-2.0) Calcium Level 7.0 mg/dL (8.5-10.1) Magnesium Level 1.6 mg/dL (1.8-2.4) Total Bilirubin 0.2 mg/dL (0.2-1.0) Aspartate Amino Transf (AST/SGOT) 252 U/L (15-37) Alanine Aminotransferase (ALT/SGPT) 270 U/L (14-59) Alkaline Phosphatase 78 U/L (46-116) Troponin I Quantitative 0.196 ng/mL (0.000-0.055) Total Protein 5.4 g/dL (6.4-8.2) Albumin 2.8 g/dL (3.4-5.0) Albumin/Globulin Ratio 1.1 (1.0-1.7) Images Images XR CHEST 1V History: Reason: cardiac arrest, intubated, et and og placement / Spl. Instructions: / History: Comparison: March 26, 2018 Findings: Diffuse interstitial and alveolar opacities. Small left pleural effusion. No pneumothorax. Unchanged heart size. Biapical pleural thickening, right greater than left. Multilevel thoracolumbar spondylosis with rightward curvature. Endotracheal tube with tip 5.3 cm above the janina. Enteric tube with tip projecting over the proximal stomach and side port within the distal esophagus. Impression: 1. Diffuse interstitial and alveolar opacities, may represent pulmonary edema or infection. 2. Interval placement of enteric tube with tip projecting over the proximal stomach and side port within the distal esophagus. Recommend advancement. Electronically signed by: James Montelongo DO (07/20/2020 6:49 AM) [facility] ////////////////////////////////////// STUDY: CT head and cervical spine without contrast INDICATION: Unwitnessed fall. Forehead hematoma. COMPARISON: None. TECHNIQUE: Axial CT imaging through the head and cervical spine without the use of intravenous contrast. Sagittal and coronal reformats were obtained. One or more of the following individualized dose reduction techniques were utilized for this examination: 1. Automated exposure control 2. Adjustment of the mA and/or kV according to patient size 3. Use of iterative reconstruction technique. FINDINGS: CT head: Study degradation in part on account of motion. No acute intracranial hemorrhage. No mass effect, midline shift or hydrocephalus. No CT evidence for an acute cortical infarction. White matter findings which are nonspecific but most frequently on account of chronic microvascular ischemic change. Intracranial calcific atherosclerosis. Left scalp injury with a localized hematoma at the left frontal region. No depressed calvarial fracture. CT cervical spine: Mild motion degradation. Noting osteopenia no acute cervical spine fracture. Reversal of cervical lordosis centered at C4-C5. Severe discogenic arthrosis at C4-C5. Less pronounced discogenic arthrosis at C3-C4, C5-C6 and C6-C7. Grade 1 anterolisthesis of C3 on C4. Multilevel facet arthrosis and uncovertebral joint hypertrophy. No evidence for severe central canal stenosis. No paraspinous hematoma. Nasogastric and endotracheal intubation. IMPRESSION: CT head: 1. Motion degradation. Diagnostic utility is mostly maintained. 2. Scalp injury on the left without an associated depressed calvarial fracture or acute intracranial hemorrhage. CT cervical spine: 1. Mild motion degradation. Taking this into consideration in addition to osteopenia no acute fracture. No paraspinous hematoma is identified to suggest occult osseous injury. 2. Multilevel spondylosis greatest at C4-C5. No evidence for severe central canal stenosis. EXAMINATION: CT chest, abdomen and pelvis with IV contrast. INDICATION:85 years, Female, falling down, left for head hematoma. Evaluate for intrathoracic and abdominal injury. TECHNIQUE: Axial CT images of the chest, abdomen and pelvis were obtained. Coronal and sagittal reformatted performed. COMPARISON: None. Exposure: One or more of the following individualized dose reduction techniques were utilized for this examination: 1. Automated exposure control 2. Adjustment of the mA and/or kV according to patient size 3. Use of iterative reconstruction technique. FINDINGS: CHEST: Visualized thyroid and esophagus are unremarkable. Enteric tube seen within the esophagus with the tip terminates within the proximal stomach. Cardiomegaly with trace pericardial effusion. Mild coronary artery atherosclerotic calcifications. Ascending aortic aneurysm measures up to 5.0 cm. Mild atherosclerotic rad cifications of the thoracic aorta. Pulmonary artery is normal in caliber. No intrathoracic lymphadenopathy by size criteria. Few calcified mediastinal lymph nodes. Endotracheal tube tip locates above the janina. Central airways are patent. Moderate right and small left pleural effusions with associated compressive atelectasis. Diffuse interlobular septal thickening with a mosaic attenuation and groundglass opacities, particularly in the left upper lobe. Bibasilar subsegmental atelectasis. No suspicious pulmonary nodule. Diffuse bronchial wall thickening in the lower lobes. No pneumothorax. ABDOMEN/PELVIS: No hepatomegaly. Normal homogeneous enhancement of the liver with no suspicious focal hepatic lesion. Moderate periportal edema. Unremarkable gallbladder. No biliary ductal dilation. Calcified granulomas in the spleen. Moderate atrophic pancreatic parenchyma. Nodular thickening of the left gland without discrete nodule. The right adrenal gland is normal. No hydronephrosis or nephrolithiasis in either kidney. Moderate aortoiliac atherosclerotic calcifications. No significant luminal narrowing or dilation. Distended intrahepatic IVC. Portal vein and mesenteric arteries are patent. No abdominopelvic lymphadenopathy by size criteria. Small abdominal ascites. No pneumoperitoneum. No bowel obstruction or wall thickening. Underdistended urinary bladder with Garcia's catheter in place and nondependent gas. Unremarkable uterus. No suspicious pelvic masses. MUSCULOSKELETAL: Lucent line in the lateral aspect of the left third rib (series 4 image 25). Diffuse osteopenia. Severe multilevel degenerative changes in the spine. Moderate dextroscoliosis of lumbar spine. IMPRESSION: 1. Lucent line along the lateral aspect of the left third rib, may be artifactual from motion artifact or nondisplaced fracture. Consider correlation with point of tenderness. 2. Otherwise, no acute traumatic injury to the chest, abdomen or pelvis. 3. Findings of fluid overload with moderate to severe pulmonary edema, moderate right and small left pleural effusions, periportal edema and trace amount of abdominal ascites. Underlying pneumonia in left upper lobe cannot be excluded. 4. Ascending aortic aneurysm measures up to 5.0 cm in diameter. 5. Other chronic/incidental finding, as described above. VTE Prophylaxis Ordered VTE Prophylaxis Devices: Yes VTE Pharmacological Prophylaxi: No Assessment/Plan Assessment/Plan Postcode Anoxic encephalopathy Metabolic acidosis Ascending aortic aneurysm 5 cm History of systolic CHF RODRIGO Normocytic anemia Plan: Given presenting symptom of PA, not appropriate for therapeutic hypothermia Patient reportedly had seizure-like activity in ICU Continue Keppra twice daily No conclusive evidence of infection the lungs on CXR CT head showed scalp injury on the left without an associated depressed calvarial fracture or acute intracranial hemorrhage Continue supportive care in ICU FEN - NPO PPX - SCDs FULL CODE Dispo - inpatient for above Total critical care time spent 30 minutes reviewing charts, reviewing labs, reviewing imaging, discussion with ED attending, discussion with family, and discussion with RN. Justifications for Admission Other Justification JOSE GOLDSTEIN MD Jul 20, 2020 17:02
[2020-07-20] MEDS ORDERED: MORPHINE SULFATE 2 MG/ML VIAL. IV PRN (17:45)
[2020-07-20] MEDS ORDERED: fentaNYL PF VIAL 100 MCG/2 ML VIAL IV PRN (17:45)
[2020-07-20] MEDS ORDERED: 0.9 % SODIUM CHLORIDE 10 ML DISP.SYRIN. IV PRN (17:45)
[2020-07-20] MEDS ORDERED: ACETAMINOPHEN 325 MG TABLET. PO PRN (17:45)
[2020-07-20] MEDS ORDERED: ONDANSETRON PF 4 MG/2 ML VIAL. IVP PRN (17:45)
[2020-07-20] MEDS ORDERED: FAMOTIDINE 20 MG/2 ML VIAL IVP SCH (21:00)
[2020-07-20] MEDS ORDERED: CHLORHEXIDINE 0.12% 15 ML MOUTHWASH. MM SCH (21:00)
[2020-07-21] VITALS (31 sets, daily range): BP systolic 92–144; BP diastolic 40–97
--- NOTE | 2020-07-21 03:51 | CONS ---
DATE OF CONSULTATION: 07/20/2020 ATTENDING PHYSICIAN: Dr. Flores. REASON FOR CONSULTATION: The patient is seen in pulmonary consultation at the request of Dr. Flores for acute respiratory failure, status post out of hospital cardiac arrest. HISTORY OF PRESENT ILLNESS: The patient is an 85-year-old apparently drove herself to [facility] Emergency Department. She got out of the car and apparently she fell to the ground. She struck her head. She was resuscitated, intubated and transferred to [facility]. The last arterial blood gas revealed a pH of 7.32, PaCO2 of 39, pO2 of 75 on 100%. White count was elevated. Electrolytes were noted. She had a chest x-ray which revealed bilateral pulmonary infiltrates compatible with pulmonary edema. The patient does have a known history of cardiomyopathy with previous ejection fraction 20-25%. She also had aortic aneurysm that was being followed. The history is obtained by speaking with a son who is at the bedside and nursing staff. I do not have any documentation at this time for review. I did review her history and physical from 2018. At that time, she was admitted by Dr. Partida with increasing shortness of breath and was found to have pneumonia in 2018. PAST MEDICAL HISTORY: Remarkable for cardiomyopathy, ejection fraction in the past 20-25%. She also has a history of aortic aneurysm that is being followed as a diagnosis of diabetes, hypertension, hyperlipidemia. PAST SURGICAL HISTORY: No recent major surgeries. ALLERGIES: PENICILLIN. FAMILY HISTORY: Positive for cancer. Mother at age of 60 from gallbladder cancer. SOCIAL HISTORY: She is , lives on her own. According to the son, she is very independent, never smoked. REVIEW OF SYSTEMS: Unobtainable secondary to patient's condition. PHYSICAL EXAMINATION: GENERAL: The patient is currently in the intensive care unit. She has been given some IV Keppra. She continues to have some seizure activity. VITAL SIGNS: She currently on assist control with FiO2 of 45%, rate of 18, PEEP of 5 and tidal volume is set at 400. HEENT: Head: There is evidence of recent trauma to the left skull, orally placed endotracheal tube. NECK: Full expansion. LUNGS: Anteriorly were clear. CARDIOVASCULAR: Regular rate and rhythm with S1, S2. No S3. ABDOMEN: Soft, nontender, nondistended. EXTREMITIES: No clubbing or cyanosis. No pitting edema. NEUROLOGIC: The patient was sedated, but was having active seizure activity. LABORATORY DATA: Chest x-ray from [facility] was reviewed. There was bilateral pulmonary infiltrates compatible with CHF. There is also evidence of enlarged aortic aneurysm and enlarged aorta. She had a head and cervical spine at [facility]. CT head showed motion degradation, scalp injury to the left without associated depressed fractures or acute intracranial hemorrhage. CT cervical neck revealed multilevel spondylosis at C4-C5, no evidence of central canal stenosis, no osseous injuries. The patient also had a CT chest, abdomen and pelvis at [facility]. There was no acute injury in the chest, abdomen and pelvis, findings of fluid overload with pulmonary edema, ascending aortic aneurysm measuring 5 cm. LABORATORIES: White count was 15,000; hemoglobin and hematocrit of ____. Electrolytes were noted. BUN was 19, creatinine 1.5. Lactic acid was elevated. Troponin was elevated. IMPRESSION: 1. Acute respiratory failure secondary to [id number] cardiac arrest. 2. History of cardiomyopathy, suspected arrhythmia causing cardiac arrest. 3. Scalp laceration secondary to syncope. 4. CT chest revealing no evidence of pathology except for CHF. 5. Cervical spine revealed no evidence of cervical spine fracture. 6. Cardiomyopathy. 7. Acute on chronic systolic heart failure. 8. Abdominal aortic aneurysm measuring 5 cm. 9. Previous coronary angiogram revealing 2-vessel coronary artery disease with no critical lesions. This was performed back in 12/2017. 10. Seizure secondary to possible anoxic brain injury. 11. Hypotension, suspect cardiac in nature, continue norepinephrine. PLAN: 1. We will continue current support with mechanical ventilation. 2. Follow cardiology input. 3. Neurology has been consulted. The patient started on Keppra. 4. Continues heavy sedation. 5. Diurese. 6. No need for antibiotics. 7. Repeat routine labs, chest x-ray, and ABG in the a.m. 8. DVT and GI prophylaxis. 9. Continue norepinephrine to maintain mean arterial pressure above 60. Total cumulative critical care time of 50 minutes reviewing the old records, interviewing the son at the bedside. Discussion with nursing staff and examining the patient, reviewing the current imaging studies, previous imaging studies. Arriving at an impression and formulating a plan. MELITA/AGAPITO/MAKENNA DR: MELITA/nishi TID: [id number]
[2020-07-21 06:08] LABS: BASO % 1 % (0-3); EOS % 0 % (0-3); HEMATOCRIT 27.4 % (36.0-47.0); HEMOGLOBIN 9.2 g/dL (12.0-15.5); LYMPH # 1.2 x10^3/uL (1.0-4.8); LYMPH % 12 % (24-48); MEAN CORPUSCULAR HEMOGLOBIN 29 pg (25-35); MEAN CORPUSCULAR HGB CONC 34 g/dL (31-37); MEAN CORPUSCULAR VOLUME 87 fL (79-100); MONO # 0.9 x10^3/uL (0.0-1.1); MONO % 9 % (0-9); NEUT # 7.7 x10^3/uL (1.8-7.7); NEUT % 78 % (31-73); PLATELET COUNT 167 x10^3/uL (140-400); RED BLOOD COUNT 3.16 x10^6/uL (3.50-5.40); RED CELL DISTRIBUTION WIDTH 15.2 % (11.5-14.5); WHITE BLOOD COUNT 9.9 x10^3/uL (4.0-11.0)
[2020-07-21 06:24] LABS: CALCIUM 7.1 mg/dL (8.5-10.1); CREATININE 1.3 mg/dL (0.6-1.0); GFR 38.8; POTASSIUM 3.3 mmol/L (3.5-5.1)
[2020-07-21 07:42] LABS: BASE EXCESS ABG -3 mmol/L (-3-3); HCO3 ABG 19 mmol/L (21-28); PCO2 ABG 25 mmHg (35-46); PO2 ABG 92 mmHg (65-108); SAT O2 ABG 97 % (92-99)
[2020-07-21 07:47] LABS: FIO2 ABG 45
[2020-07-21] MEDS: IV NORMAL SALINE 1000ML BAG 1,000 ML IV SCH ×2 (08:00→20:10)
--- NOTE | 2020-07-21 08:18 | PDOC ---
[employer] PROGRESS NOTE Date of Service DOS: DATE: 07/21/20 TIME: 08:05 Chief Complaint Chief Complaint Postcode Anoxic encephalopathy Metabolic acidosis Ascending aortic aneurysm 5 cm History of systolic CHF RODRIGO Normocytic anemia Plan: Given presenting symptom of PA, not appropriate for therapeutic hypothermia Patient reportedly had seizure-like activity in ICU Continue Keppra twice daily No conclusive evidence of infection the lungs on CXR CT head showed scalp injury on the left without an associated depressed calvarial fracture or acute intracranial hemorrhage Continue supportive care in ICU FEN - NPO PPX - SCDs FULL CODE Dispo - inpatient for above History of Present Illness History of Present Illness Patient is a 85-year-old female presents as a transfer from [facility] ER status post code. Discussed with [facility] ER attending, not much is known about patient but she was found in ER per him face down in for blood. Upon evaluation at [facility] she was nonverbal with GCS 3. She presented and PEA and patient coded appropriately. Labs from [facility] showed sodium 146, bicarbonate 17, creatinine 1.5, BNP 10,057, hemoglobin 9.9, hematocrit 31.6, lactic acid 7.5, pH 7.29, PCO2 39, PO2 68. She was coded for roughly 15 minutes, treated with 2 L normal saline, and then intubated on epinephrine drip. Will admit patient to ICU for further medical management. 07/21/2020: Afebrile, on vent FiO2 45%, PEEP 5. No acute events overnight. Echocardiogram from 01/02/2018 showed severe global hypokinesis of left ventricle with EF 20%, severely dilated ascending aorta 5.[address] chest obtained from [facility] again demonstrates ascending aortic aneurysm measuring up to 5.0 cm. Continue Keppra and supportive care. Continue to monitor for any neurological improvement. Patient is now DNR. Critical care time 30 minutes spent reviewing charts, reviewing labs, discussion with RN. Vitals/I&O Vitals/I&O: Vital Signs Date Time Temp Pulse Resp B/P (MAP) Pulse Ox O2 Delivery O2 Flow Rate FiO2 07/21/20 06:00 76 18 110/46 (67) 100 Ventilator 07/21/20 04:00 99.8 99.8 07/21/20 01:37 100.0 I & O 07/20/20 07/20/20 07/21/20 15:00 23:00 07:00 Intake Total 0 ml 398 ml 263 ml Output Total 610 ml 755 ml 170 ml Balance -610 ml -357 ml 93 ml Physical Exam General: No acute distress, Other (Hematoma to left forehead, wrapped and bandaged. Pupils equal, round, and minimally reactive to light) Heart: Regular rate Lungs: Clear Abdomen: Normal bowel sounds, Soft Extremities: No clubbing, No cyanosis Skin: No rashes, No breakdown, Other Labs Labs: Laboratory Tests Test 07/20/20 11:05 07/20/20 12:10 07/20/20 15:20 07/21/20 05:40 O2 Saturation 95 % (92-99) Arterial Blood pH 7.32 (7.35-7.45) Arterial Blood pCO2 at Patient Temp 39 mmHg (35-46) Arterial Blood pO2 at Patient Temp 75 mmHg (65-108) Arterial Blood HCO3 19 mmol/L (21-28) Arterial Blood Base Excess -6 mmol/L (-3-3) Oxyhemoglobin 93.9 % Methemoglobin 0.5 % (0.0-1.9) Carbon Monoxide, Quantitative 0.3 % (0.0-1.9) FiO2 100%vent White Blood Count 15.0 x10^3/uL (4.0-11.0) 9.9 x10^3/uL (4.0-11.0) Red Blood Count 3.64 x10^6/uL (3.50-5.40) 3.16 x10^6/uL (3.50-5.40) Hemoglobin 10.6 g/dL (12.0-15.5) 9.2 g/dL (12.0-15.5) Hematocrit 31.9 % (36.0-47.0) 27.4 % (36.0-47.0) Mean Corpuscular Volume 88 fL (79-100) 87 fL (79-100) Mean Corpuscular Hemoglobin 29 pg (25-35) 29 pg (25-35) Mean Corpuscular Hemoglobin Concent 33 g/dL (31-37) 34 g/dL (31-37) Red Cell Distribution Width 15.3 % (11.5-14.5) 15.2 % (11.5-14.5) Platelet Count 220 x10^3/uL (140-400) 167 x10^3/uL (140-400) Neutrophils (%) (Auto) 86 % (31-73) 78 % (31-73) Lymphocytes (%) (Auto) 3 % (24-48) 12 % (24-48) Monocytes (%) (Auto) 11 % (0-9) 9 % (0-9) Eosinophils (%) (Auto) 0 % (0-3) 0 % (0-3) Basophils (%) (Auto) 1 % (0-3) 1 % (0-3) Neutrophils # (Auto) 12.8 x10^3/uL (1.8-7.7) 7.7 x10^3/uL (1.8-7.7) Lymphocytes # (Auto) 0.4 x10^3/uL (1.0-4.8) 1.2 x10^3/uL (1.0-4.8) Monocytes # (Auto) 1.7 x10^3/uL (0.0-1.1) 0.9 x10^3/uL (0.0-1.1) Eosinophils # (Auto) 0.0 x10^3/uL (0.0-0.7) 0.0 x10^3/uL (0.0-0.7) Basophils # (Auto) 0.1 x10^3/uL (0.0-0.2) 0.0 x10^3/uL (0.0-0.2) Segmented Neutrophils % 74 % (35-66) Band Neutrophils % 15 % (0-9) Lymphocytes % 1 % (24-48) Monocytes % 10 % (0-10) Platelet Estimate Adequate (ADEQUATE) Prothrombin Time 14.6 SEC (11.7-14.0) Prothromb Time International Ratio 1.1 (0.8-1.1) Sodium Level 146 mmol/L (136-145) 146 mmol/L (136-145) Potassium Level 3.6 mmol/L (3.5-5.1) 3.3 mmol/L (3.5-5.1) Chloride Level 112 mmol/L (98-107) 114 mmol/L (98-107) Carbon Dioxide Level 21 mmol/L (21-32) 22 mmol/L (21-32) Anion Gap 13 (6-14) 10 (6-14) Blood Urea Nitrogen 19 mg/dL (7-20) 22 mg/dL (7-20) Creatinine 1.5 mg/dL (0.6-1.0) 1.3 mg/dL (0.6-1.0) Estimated GFR (Cockcroft-Gault) 32.9 38.8 BUN/Creatinine Ratio 13 (6-20) Glucose Level 255 mg/dL (70-99) 77 mg/dL (70-99) Lactic Acid Level 3.4 mmol/L (0.4-2.0) 3.7 mmol/L (0.4-2.0) Calcium Level 7.0 mg/dL (8.5-10.1) 7.1 mg/dL (8.5-10.1) Magnesium Level 1.6 mg/dL (1.8-2.4) Total Bilirubin 0.2 mg/dL (0.2-1.0) Aspartate Amino Transf (AST/SGOT) 252 U/L (15-37) Alanine Aminotransferase (ALT/SGPT) 270 U/L (14-59) Alkaline Phosphatase 78 U/L (46-116) Troponin I Quantitative 0.196 ng/mL (0.000-0.055) Total Protein 5.4 g/dL (6.4-8.2) Albumin 2.8 g/dL (3.4-5.0) Albumin/Globulin Ratio 1.1 (1.0-1.7) Test 07/21/20 07:37 O2 Saturation 97 % (92-99) Arterial Blood pH 7.51 (7.35-7.45) Arterial Blood pCO2 at Patient Temp 25 mmHg (35-46) Arterial Blood pO2 at Patient Temp 92 mmHg (65-108) Arterial Blood HCO3 19 mmol/L (21-28) Arterial Blood Base Excess -3 mmol/L (-3-3) FiO2 45 Comment Review of Relevant I have reviewed the following items jarrett (where applicable) has been applied. Medications: Current Medications Medications (Trade) Dose Ordered Sig/Patito Route PRN Reason Start Time Stop Time Status Last Admin Dose Admin Midazolam HCl 100 ml @ 1 mls/hr CONT PRN IV SEE I/O RECORD 07/20/20 11:30 07/20/20 21:59 Fentanyl Citrate 30 ml @ 0 mls/hr CONT PRN IV SEE PROTOCOL 07/20/20 11:15 07/21/20 01:37 Norepinephrine Bitartrate 8 mg/ Dextrose 258 ml @ 7.372 mls/ hr CONT PRN IV PER PROTOCOL 07/20/20 11:15 07/20/20 13:27 Levetiracetam 500 mg/Dextrose 105 ml @ 420 mls/hr Q12HR IV 07/20/20 12:45 07/20/20 20:42 Lorazepam (Ativan Inj) 2 mg 1X ONCE IVP 07/20/20 16:30 07/20/20 16:31 DC 07/20/20 16:05 Famotidine (Pepcid Vial) 20 mg BID IVP 07/20/20 21:00 07/20/20 20:42 Justifications for Admission Other Justification Post Code JOSE GOLDSTEIN MD Jul 21, 2020 08:18
--- NOTE | 2020-07-21 08:41 | PDOC ---
PULMONARY PROGRESS NOTES DATE: 07/21/20 TIME: 08:41 Subjective Pt. remains intubated low grade fever on pressors Vitals Vital Signs Date Time Temp Pulse Resp B/P (MAP) Pulse Ox O2 Delivery O2 Flow Rate FiO2 07/21/20 07:35 100 Ventilator 07/21/20 06:00 76 18 110/46 (67) 07/21/20 04:00 99.8 99.8 07/21/20 01:37 100.0 Comments vent Lungs: Clear Labs Laboratory Tests Test 07/20/20 11:05 07/20/20 12:10 07/20/20 15:20 07/21/20 05:40 O2 Saturation 95 % (92-99) Arterial Blood pH 7.32 (7.35-7.45) Arterial Blood pCO2 at Patient Temp 39 mmHg (35-46) Arterial Blood pO2 at Patient Temp 75 mmHg (65-108) Arterial Blood HCO3 19 mmol/L (21-28) Arterial Blood Base Excess -6 mmol/L (-3-3) Oxyhemoglobin 93.9 % Methemoglobin 0.5 % (0.0-1.9) Carbon Monoxide, Quantitative 0.3 % (0.0-1.9) FiO2 100%vent White Blood Count 15.0 x10^3/uL (4.0-11.0) 9.9 x10^3/uL (4.0-11.0) Red Blood Count 3.64 x10^6/uL (3.50-5.40) 3.16 x10^6/uL (3.50-5.40) Hemoglobin 10.6 g/dL (12.0-15.5) 9.2 g/dL (12.0-15.5) Hematocrit 31.9 % (36.0-47.0) 27.4 % (36.0-47.0) Mean Corpuscular Volume 88 fL (79-100) 87 fL (79-100) Mean Corpuscular Hemoglobin 29 pg (25-35) 29 pg (25-35) Mean Corpuscular Hemoglobin Concent 33 g/dL (31-37) 34 g/dL (31-37) Red Cell Distribution Width 15.3 % (11.5-14.5) 15.2 % (11.5-14.5) Platelet Count 220 x10^3/uL (140-400) 167 x10^3/uL (140-400) Neutrophils (%) (Auto) 86 % (31-73) 78 % (31-73) Lymphocytes (%) (Auto) 3 % (24-48) 12 % (24-48) Monocytes (%) (Auto) 11 % (0-9) 9 % (0-9) Eosinophils (%) (Auto) 0 % (0-3) 0 % (0-3) Basophils (%) (Auto) 1 % (0-3) 1 % (0-3) Neutrophils # (Auto) 12.8 x10^3/uL (1.8-7.7) 7.7 x10^3/uL (1.8-7.7) Lymphocytes # (Auto) 0.4 x10^3/uL (1.0-4.8) 1.2 x10^3/uL (1.0-4.8) Monocytes # (Auto) 1.7 x10^3/uL (0.0-1.1) 0.9 x10^3/uL (0.0-1.1) Eosinophils # (Auto) 0.0 x10^3/uL (0.0-0.7) 0.0 x10^3/uL (0.0-0.7) Basophils # (Auto) 0.1 x10^3/uL (0.0-0.2) 0.0 x10^3/uL (0.0-0.2) Segmented Neutrophils % 74 % (35-66) Band Neutrophils % 15 % (0-9) Lymphocytes % 1 % (24-48) Monocytes % 10 % (0-10) Platelet Estimate Adequate (ADEQUATE) Prothrombin Time 14.6 SEC (11.7-14.0) Prothromb Time International Ratio 1.1 (0.8-1.1) Sodium Level 146 mmol/L (136-145) 146 mmol/L (136-145) Potassium Level 3.6 mmol/L (3.5-5.1) 3.3 mmol/L (3.5-5.1) Chloride Level 112 mmol/L (98-107) 114 mmol/L (98-107) Carbon Dioxide Level 21 mmol/L (21-32) 22 mmol/L (21-32) Anion Gap 13 (6-14) 10 (6-14) Blood Urea Nitrogen 19 mg/dL (7-20) 22 mg/dL (7-20) Creatinine 1.5 mg/dL (0.6-1.0) 1.3 mg/dL (0.6-1.0) Estimated GFR (Cockcroft-Gault) 32.9 38.8 BUN/Creatinine Ratio 13 (6-20) Glucose Level 255 mg/dL (70-99) 77 mg/dL (70-99) Lactic Acid Level 3.4 mmol/L (0.4-2.0) 3.7 mmol/L (0.4-2.0) Calcium Level 7.0 mg/dL (8.5-10.1) 7.1 mg/dL (8.5-10.1) Magnesium Level 1.6 mg/dL (1.8-2.4) Total Bilirubin 0.2 mg/dL (0.2-1.0) Aspartate Amino Transf (AST/SGOT) 252 U/L (15-37) Alanine Aminotransferase (ALT/SGPT) 270 U/L (14-59) Alkaline Phosphatase 78 U/L (46-116) Troponin I Quantitative 0.196 ng/mL (0.000-0.055) Total Protein 5.4 g/dL (6.4-8.2) Albumin 2.8 g/dL (3.4-5.0) Albumin/Globulin Ratio 1.1 (1.0-1.7) Test 07/21/20 07:37 O2 Saturation 97 % (92-99) Arterial Blood pH 7.51 (7.35-7.45) Arterial Blood pCO2 at Patient Temp 25 mmHg (35-46) Arterial Blood pO2 at Patient Temp 92 mmHg (65-108) Arterial Blood HCO3 19 mmol/L (21-28) Arterial Blood Base Excess -3 mmol/L (-3-3) FiO2 45 Laboratory Tests Test 07/20/20 11:05 07/20/20 12:10 07/20/20 15:20 07/21/20 05:40 O2 Saturation 95 % (92-99) Arterial Blood pH 7.32 (7.35-7.45) Arterial Blood pCO2 at Patient Temp 39 mmHg (35-46) Arterial Blood pO2 at Patient Temp 75 mmHg (65-108) Arterial Blood HCO3 19 mmol/L (21-28) Arterial Blood Base Excess -6 mmol/L (-3-3) Oxyhemoglobin 93.9 % Methemoglobin 0.5 % (0.0-1.9) Carbon Monoxide, Quantitative 0.3 % (0.0-1.9) FiO2 100%vent White Blood Count 15.0 x10^3/uL (4.0-11.0) 9.9 x10^3/uL (4.0-11.0) Red Blood Count 3.64 x10^6/uL (3.50-5.40) 3.16 x10^6/uL (3.50-5.40) Hemoglobin 10.6 g/dL (12.0-15.5) 9.2 g/dL (12.0-15.5) Hematocrit 31.9 % (36.0-47.0) 27.4 % (36.0-47.0) Mean Corpuscular Volume 88 fL (79-100) 87 fL (79-100) Mean Corpuscular Hemoglobin 29 pg (25-35) 29 pg (25-35) Mean Corpuscular Hemoglobin Concent 33 g/dL (31-37) 34 g/dL (31-37) Red Cell Distribution Width 15.3 % (11.5-14.5) 15.2 % (11.5-14.5) Platelet Count 220 x10^3/uL (140-400) 167 x10^3/uL (140-400) Neutrophils (%) (Auto) 86 % (31-73) 78 % (31-73) Lymphocytes (%) (Auto) 3 % (24-48) 12 % (24-48) Monocytes (%) (Auto) 11 % (0-9) 9 % (0-9) Eosinophils (%) (Auto) 0 % (0-3) 0 % (0-3) Basophils (%) (Auto) 1 % (0-3) 1 % (0-3) Neutrophils # (Auto) 12.8 x10^3/uL (1.8-7.7) 7.7 x10^3/uL (1.8-7.7) Lymphocytes # (Auto) 0.4 x10^3/uL (1.0-4.8) 1.2 x10^3/uL (1.0-4.8) Monocytes # (Auto) 1.7 x10^3/uL (0.0-1.1) 0.9 x10^3/uL (0.0-1.1) Eosinophils # (Auto) 0.0 x10^3/uL (0.0-0.7) 0.0 x10^3/uL (0.0-0.7) Basophils # (Auto) 0.1 x10^3/uL (0.0-0.2) 0.0 x10^3/uL (0.0-0.2) Segmented Neutrophils % 74 % (35-66) Band Neutrophils % 15 % (0-9) Lymphocytes % 1 % (24-48) Monocytes % 10 % (0-10) Platelet Estimate Adequate (ADEQUATE) Prothrombin Time 14.6 SEC (11.7-14.0) Prothromb Time International Ratio 1.1 (0.8-1.1) Sodium Level 146 mmol/L (136-145) 146 mmol/L (136-145) Potassium Level 3.6 mmol/L (3.5-5.1) 3.3 mmol/L (3.5-5.1) Chloride Level 112 mmol/L (98-107) 114 mmol/L (98-107) Carbon Dioxide Level 21 mmol/L (21-32) 22 mmol/L (21-32) Anion Gap 13 (6-14) 10 (6-14) Blood Urea Nitrogen 19 mg/dL (7-20) 22 mg/dL (7-20) Creatinine 1.5 mg/dL (0.6-1.0) 1.3 mg/dL (0.6-1.0) Estimated GFR (Cockcroft-Gault) 32.9 38.8 BUN/Creatinine Ratio 13 (6-20) Glucose Level 255 mg/dL (70-99) 77 mg/dL (70-99) Lactic Acid Level 3.4 mmol/L (0.4-2.0) 3.7 mmol/L (0.4-2.0) Calcium Level 7.0 mg/dL (8.5-10.1) 7.1 mg/dL (8.5-10.1) Magnesium Level 1.6 mg/dL (1.8-2.4) Total Bilirubin 0.2 mg/dL (0.2-1.0) Aspartate Amino Transf (AST/SGOT) 252 U/L (15-37) Alanine Aminotransferase (ALT/SGPT) 270 U/L (14-59) Alkaline Phosphatase 78 U/L (46-116) Troponin I Quantitative 0.196 ng/mL (0.000-0.055) Total Protein 5.4 g/dL (6.4-8.2) Albumin 2.8 g/dL (3.4-5.0) Albumin/Globulin Ratio 1.1 (1.0-1.7) Test 07/21/20 07:37 O2 Saturation 97 % (92-99) Arterial Blood pH 7.51 (7.35-7.45) Arterial Blood pCO2 at Patient Temp 25 mmHg (35-46) Arterial Blood pO2 at Patient Temp 92 mmHg (65-108) Arterial Blood HCO3 19 mmol/L (21-28) Arterial Blood Base Excess -3 mmol/L (-3-3) FiO2 45 Medications Active Scripts Medications Dose Route/Sig Max Daily Dose Days Date Category Levaquin (Levofloxacin) 500 Mg Tablet 1 Tab PO DAILY 7 01/03/18 Rx Lasix (Furosemide) 40 Mg Tablet 1 Tab PO DAILY 30 01/03/18 Rx Aspirin 81 Mg Tab.chew 1 Tab PO DAILY 30 01/03/18 Rx Metoprolol Succinate ( Xl ) (Metoprolol Succinate) 25 Mg Tab.er.24h 1 Tab PO DAILY 30 01/03/18 Rx Lisinopril 5 Mg Tablet 1 Tab PO DAILY 3 01/03/18 Rx Impression . IMPRESSION: 1. Acute respiratory failure secondary to [id number] cardiac arrest. 2. History of cardiomyopathy, suspected arrhythmia causing cardiac arrest. 3. Scalp laceration secondary to syncope. 4. CT chest revealing no evidence of pathology except for CHF. 5. Cervical spine revealed no evidence of cervical spine fracture. 6. Cardiomyopathy. 7. Acute on chronic systolic heart failure. 8. Abdominal aortic aneurysm measuring 5 cm. 9. Previous coronary angiogram revealing 2-vessel coronary artery disease with no critical lesions. This was performed back in 12/2017. 10. Seizure secondary to possible anoxic brain injury. 11. Hypotension, suspect cardiac in nature, continue norepinephrine. Plan . PLAN: Continue current vent support, Family planning for Palliative withdrawal this weekend once family arrives Proceed with Comfort Care at this time Follow ABG/CXR Follow neurology recs on Keppra Follow Cardiology recs--Diurese Continue Vasopressors to keep Map above 65, will not add any further pressors DVT/GI PPX D/W RN and CLAUDIA Benson MD Jul 21, 2020 08:41
--- NOTE | 2020-07-21 08:52 | PDOC ---
PROGRESS NOTES Date of Service DATE: 07/21/20 TIME: 08:50 Assessment Anoxic encephalopathy Seizure activity Plan DNR Levetiracetam, midazolam Discussed with patient's son. He would like to wait 1 more day and plans to withdraw care tomorrow Subjective none Objective Vital Signs Date Time Temp Pulse Resp B/P (MAP) Pulse Ox O2 Delivery O2 Flow Rate FiO2 07/21/20 07:35 100 Ventilator 07/21/20 06:00 76 18 110/46 (67) 07/21/20 04:00 99.8 99.8 07/21/20 01:37 100.0 Intake and Output 07/21/20 07:00 Intake Total 661 ml Output Total 1535 ml Balance -874 ml Intake Oral 0 ml IV Total 661 ml Output Urine Total 1535 ml Gastric Drainage Total 0 ml PHYSICAL EXAM Sedated on ventilator, mild myoclonic movements of abdominal muscles Pupils minimally responsive CN: no focal findings. Muscle tone: normal. Muscle strength: Minimal response to pain DTR: 1+ Plantar reflex: Silent Gait: not examined in bed. Sensory exam: Not testable Cerebellar: Not testable Review of Relevant I have reviewed the following items jarrett (where applicable) has been applied. Labs Laboratory Tests Test 07/20/20 11:05 07/20/20 12:10 07/20/20 15:20 07/21/20 05:40 O2 Saturation 95 % (92-99) Arterial Blood pH 7.32 (7.35-7.45) Arterial Blood pCO2 at Patient Temp 39 mmHg (35-46) Arterial Blood pO2 at Patient Temp 75 mmHg (65-108) Arterial Blood HCO3 19 mmol/L (21-28) Arterial Blood Base Excess -6 mmol/L (-3-3) Oxyhemoglobin 93.9 % Methemoglobin 0.5 % (0.0-1.9) Carbon Monoxide, Quantitative 0.3 % (0.0-1.9) FiO2 100%vent White Blood Count 15.0 x10^3/uL (4.0-11.0) 9.9 x10^3/uL (4.0-11.0) Red Blood Count 3.64 x10^6/uL (3.50-5.40) 3.16 x10^6/uL (3.50-5.40) Hemoglobin 10.6 g/dL (12.0-15.5) 9.2 g/dL (12.0-15.5) Hematocrit 31.9 % (36.0-47.0) 27.4 % (36.0-47.0) Mean Corpuscular Volume 88 fL (79-100) 87 fL (79-100) Mean Corpuscular Hemoglobin 29 pg (25-35) 29 pg (25-35) Mean Corpuscular Hemoglobin Concent 33 g/dL (31-37) 34 g/dL (31-37) Red Cell Distribution Width 15.3 % (11.5-14.5) 15.2 % (11.5-14.5) Platelet Count 220 x10^3/uL (140-400) 167 x10^3/uL (140-400) Neutrophils (%) (Auto) 86 % (31-73) 78 % (31-73) Lymphocytes (%) (Auto) 3 % (24-48) 12 % (24-48) Monocytes (%) (Auto) 11 % (0-9) 9 % (0-9) Eosinophils (%) (Auto) 0 % (0-3) 0 % (0-3) Basophils (%) (Auto) 1 % (0-3) 1 % (0-3) Neutrophils # (Auto) 12.8 x10^3/uL (1.8-7.7) 7.7 x10^3/uL (1.8-7.7) Lymphocytes # (Auto) 0.4 x10^3/uL (1.0-4.8) 1.2 x10^3/uL (1.0-4.8) Monocytes # (Auto) 1.7 x10^3/uL (0.0-1.1) 0.9 x10^3/uL (0.0-1.1) Eosinophils # (Auto) 0.0 x10^3/uL (0.0-0.7) 0.0 x10^3/uL (0.0-0.7) Basophils # (Auto) 0.1 x10^3/uL (0.0-0.2) 0.0 x10^3/uL (0.0-0.2) Segmented Neutrophils % 74 % (35-66) Band Neutrophils % 15 % (0-9) Lymphocytes % 1 % (24-48) Monocytes % 10 % (0-10) Platelet Estimate Adequate (ADEQUATE) Prothrombin Time 14.6 SEC (11.7-14.0) Prothromb Time International Ratio 1.1 (0.8-1.1) Sodium Level 146 mmol/L (136-145) 146 mmol/L (136-145) Potassium Level 3.6 mmol/L (3.5-5.1) 3.3 mmol/L (3.5-5.1) Chloride Level 112 mmol/L (98-107) 114 mmol/L (98-107) Carbon Dioxide Level 21 mmol/L (21-32) 22 mmol/L (21-32) Anion Gap 13 (6-14) 10 (6-14) Blood Urea Nitrogen 19 mg/dL (7-20) 22 mg/dL (7-20) Creatinine 1.5 mg/dL (0.6-1.0) 1.3 mg/dL (0.6-1.0) Estimated GFR (Cockcroft-Gault) 32.9 38.8 BUN/Creatinine Ratio 13 (6-20) Glucose Level 255 mg/dL (70-99) 77 mg/dL (70-99) Lactic Acid Level 3.4 mmol/L (0.4-2.0) 3.7 mmol/L (0.4-2.0) Calcium Level 7.0 mg/dL (8.5-10.1) 7.1 mg/dL (8.5-10.1) Magnesium Level 1.6 mg/dL (1.8-2.4) Total Bilirubin 0.2 mg/dL (0.2-1.0) Aspartate Amino Transf (AST/SGOT) 252 U/L (15-37) Alanine Aminotransferase (ALT/SGPT) 270 U/L (14-59) Alkaline Phosphatase 78 U/L (46-116) Troponin I Quantitative 0.196 ng/mL (0.000-0.055) Total Protein 5.4 g/dL (6.4-8.2) Albumin 2.8 g/dL (3.4-5.0) Albumin/Globulin Ratio 1.1 (1.0-1.7) Test 07/21/20 07:37 O2 Saturation 97 % (92-99) Arterial Blood pH 7.51 (7.35-7.45) Arterial Blood pCO2 at Patient Temp 25 mmHg (35-46) Arterial Blood pO2 at Patient Temp 92 mmHg (65-108) Arterial Blood HCO3 19 mmol/L (21-28) Arterial Blood Base Excess -3 mmol/L (-3-3) FiO2 45 Laboratory Tests Test 07/20/20 11:05 07/20/20 12:10 07/20/20 15:20 07/21/20 05:40 O2 Saturation 95 % (92-99) Arterial Blood pH 7.32 (7.35-7.45) Arterial Blood pCO2 at Patient Temp 39 mmHg (35-46) Arterial Blood pO2 at Patient Temp 75 mmHg (65-108) Arterial Blood HCO3 19 mmol/L (21-28) Arterial Blood Base Excess -6 mmol/L (-3-3) Oxyhemoglobin 93.9 % Methemoglobin 0.5 % (0.0-1.9) Carbon Monoxide, Quantitative 0.3 % (0.0-1.9) FiO2 100%vent White Blood Count 15.0 x10^3/uL (4.0-11.0) 9.9 x10^3/uL (4.0-11.0) Red Blood Count 3.64 x10^6/uL (3.50-5.40) 3.16 x10^6/uL (3.50-5.40) Hemoglobin 10.6 g/dL (12.0-15.5) 9.2 g/dL (12.0-15.5) Hematocrit 31.9 % (36.0-47.0) 27.4 % (36.0-47.0) Mean Corpuscular Volume 88 fL (79-100) 87 fL (79-100) Mean Corpuscular Hemoglobin 29 pg (25-35) 29 pg (25-35) Mean Corpuscular Hemoglobin Concent 33 g/dL (31-37) 34 g/dL (31-37) Red Cell Distribution Width 15.3 % (11.5-14.5) 15.2 % (11.5-14.5) Platelet Count 220 x10^3/uL (140-400) 167 x10^3/uL (140-400) Neutrophils (%) (Auto) 86 % (31-73) 78 % (31-73) Lymphocytes (%) (Auto) 3 % (24-48) 12 % (24-48) Monocytes (%) (Auto) 11 % (0-9) 9 % (0-9) Eosinophils (%) (Auto) 0 % (0-3) 0 % (0-3) Basophils (%) (Auto) 1 % (0-3) 1 % (0-3) Neutrophils # (Auto) 12.8 x10^3/uL (1.8-7.7) 7.7 x10^3/uL (1.8-7.7) Lymphocytes # (Auto) 0.4 x10^3/uL (1.0-4.8) 1.2 x10^3/uL (1.0-4.8) Monocytes # (Auto) 1.7 x10^3/uL (0.0-1.1) 0.9 x10^3/uL (0.0-1.1) Eosinophils # (Auto) 0.0 x10^3/uL (0.0-0.7) 0.0 x10^3/uL (0.0-0.7) Basophils # (Auto) 0.1 x10^3/uL (0.0-0.2) 0.0 x10^3/uL (0.0-0.2) Segmented Neutrophils % 74 % (35-66) Band Neutrophils % 15 % (0-9) Lymphocytes % 1 % (24-48) Monocytes % 10 % (0-10) Platelet Estimate Adequate (ADEQUATE) Prothrombin Time 14.6 SEC (11.7-14.0) Prothromb Time International Ratio 1.1 (0.8-1.1) Sodium Level 146 mmol/L (136-145) 146 mmol/L (136-145) Potassium Level 3.6 mmol/L (3.5-5.1) 3.3 mmol/L (3.5-5.1) Chloride Level 112 mmol/L (98-107) 114 mmol/L (98-107) Carbon Dioxide Level 21 mmol/L (21-32) 22 mmol/L (21-32) Anion Gap 13 (6-14) 10 (6-14) Blood Urea Nitrogen 19 mg/dL (7-20) 22 mg/dL (7-20) Creatinine 1.5 mg/dL (0.6-1.0) 1.3 mg/dL (0.6-1.0) Estimated GFR (Cockcroft-Gault) 32.9 38.8 BUN/Creatinine Ratio 13 (6-20) Glucose Level 255 mg/dL (70-99) 77 mg/dL (70-99) Lactic Acid Level 3.4 mmol/L (0.4-2.0) 3.7 mmol/L (0.4-2.0) Calcium Level 7.0 mg/dL (8.5-10.1) 7.1 mg/dL (8.5-10.1) Magnesium Level 1.6 mg/dL (1.8-2.4) Total Bilirubin 0.2 mg/dL (0.2-1.0) Aspartate Amino Transf (AST/SGOT) 252 U/L (15-37) Alanine Aminotransferase (ALT/SGPT) 270 U/L (14-59) Alkaline Phosphatase 78 U/L (46-116) Troponin I Quantitative 0.196 ng/mL (0.000-0.055) Total Protein 5.4 g/dL (6.4-8.2) Albumin 2.8 g/dL (3.4-5.0) Albumin/Globulin Ratio 1.1 (1.0-1.7) Test 07/21/20 07:37 O2 Saturation 97 % (92-99) Arterial Blood pH 7.51 (7.35-7.45) Arterial Blood pCO2 at Patient Temp 25 mmHg (35-46) Arterial Blood pO2 at Patient Temp 92 mmHg (65-108) Arterial Blood HCO3 19 mmol/L (21-28) Arterial Blood Base Excess -3 mmol/L (-3-3) FiO2 45 Medications Current Medications Midazolam HCl 100 ml @ 1 mls/hr CONT PRN IV SEE I/O RECORD Last administered on 07/20/20at 21:59; Start 07/20/20 at 11:30 Fentanyl Citrate 30 ml @ 0 mls/hr CONT PRN IV SEE PROTOCOL Last administered on 07/21/20at 01:37; Start 07/20/20 at 11:15 Norepinephrine Bitartrate 8 mg/ Dextrose 258 ml @ 7.372 mls/ hr CONT PRN IV PER PROTOCOL Last administered on 07/20/20at 13:27; Start 07/20/20 at 11:15 Fentanyl Citrate 30 ml @ 0 mls/hr CONT PRN IV SEE PROTOCOL; Start 07/20/20 at 11:15; Stop 07/20/20 at 11:13; Status DC Chlorhexidine Gluconate (Peridex) 15 ml BID MM ; Start 07/20/20 at 21:00; Stop 07/20/20 at 17:14; Status DC Midazolam HCl 100 ml @ 0 mls/hr CONT PRN IV SEE PROTOCOL; Start 07/20/20 at 11:15; Stop 07/20/20 at 11:13; Status DC Norepinephrine Bitartrate 8 mg/ Dextrose 258 ml @ 8.127 mls/ hr CONT PRN IV PER PROTOCOL; Start 07/20/20 at 11:15; Stop 07/20/20 at 11:13; Status DC Levetiracetam 500 mg/Dextrose 105 ml @ 420 mls/hr Q12HR IV Last administered on 07/20/20at 20:42; Start 07/20/20 at 12:45 Lidocaine HCl (Buffered Lidocaine 1%) 3 ml 1X ONCE INJ ; Start 07/20/20 at 14:15; Stop 07/20/20 at 14:16; Status DC Lorazepam (Ativan Inj) 2 mg STK-MED ONCE .ROUTE ; Start 07/20/20 at 15:41; Stop 07/20/20 at 15:42; Status DC Lorazepam (Ativan Inj) 2 mg 1X ONCE IVP Last administered on 07/20/20at 16:05; Start 07/20/20 at 16:30; Stop 07/20/20 at 16:31; Status DC Acetaminophen (Tylenol) 650 mg PRN Q6HRS PRN PO Headaches, Temp > 101.5'; Start 07/20/20 at 17:45 Lorazepam (Ativan Inj) 0.5 mg PRN Q6HRS PRN IVP ANXIETY / AGITATION; Start 07/20/20 at 17:45 Ondansetron HCl (Zofran) 4 mg PRN Q6HRS PRN IVP NAUSEA/VOMITING; Start 07/20/20 at 17:45 Famotidine (Pepcid Vial) 20 mg BID IVP Last administered on 07/20/20at 20:42; Start 07/20/20 at 21:00 Info (Icu Electrolyte Protocol) 1 ea DAILY MC ; Start 07/21/20 at 09:00 Sodium Chloride (Normal Saline Flush) 3 ml QSHIFT PRN IV AFTER MEDS AND BLOOD DRAWS; Start 07/20/20 at 17:45 Morphine Sulfate (Morphine Sulfate) 2 mg PRN Q1HR PRN IV PAIN; Start 07/20/20 at 17:45 Fentanyl Citrate (Fentanyl 2ml Vial) 25 mcg PRN Q1HR PRN IV PAIN; Start 07/20/20 at 17:45 Active Scripts Active Levaquin (Levofloxacin) 500 Mg Tablet 1 Tab PO DAILY 7 Days Lasix (Furosemide) 40 Mg Tablet 1 Tab PO DAILY 30 Days Aspirin 81 Mg Tab.chew 1 Tab PO DAILY 30 Days Metoprolol Succinate ( Xl ) (Metoprolol Succinate) 25 Mg Tab.er.24h 1 Tab PO DAILY 30 Days Lisinopril 5 Mg Tablet 1 Tab PO DAILY 3 Days Vitals/I & O Vital Sign - Last 24 Hours 07/20/20 07/20/20 07/20/20 07/20/20 10:45 10:50 11:00 11:15 Temp 99.0 99.0 Pulse 112 118 124 Resp 18 18 18 B/P (MAP) 127/66 (86) 112/56 (74) 134/64 (87) Pulse Ox 99 98 99 99 O2 Delivery Ventilator Ventilator Ventilator Ventilator 07/20/20 07/20/20 07/20/20 07/20/20 11:30 11:45 12:00 12:15 Pulse 130 124 118 118 Resp 18 18 18 18 B/P (MAP) 137/60 (85) 110/68 (82) 119/54 (75) 164/54 (90) Pulse Ox 97 98 98 98 O2 Delivery Ventilator Ventilator Ventilator Ventilator 07/20/20 07/20/20 07/20/20 07/20/20 12:30 12:41 12:45 13:00 Pulse 94 100 96 Resp 18 18 18 B/P (MAP) 90/32 (51) 146/50 (82) 154/58 (90) Pulse Ox 98 98 98 98 O2 Delivery Ventilator Ventilator Ventilator Ventilator 07/20/20 07/20/20 07/20/20 07/20/20 13:17 14:00 15:00 15:45 Temp 98.3 98.3 Pulse 94 80 Resp 18 18 B/P (MAP) 128/73 (91) 114/56 (75) Pulse Ox 98 97 99 98 O2 Delivery Ventilator Ventilator Ventilator Ventilator 07/20/20 07/20/20 07/20/20 07/20/20 16:00 17:00 17:00 17:40 Temp 98.9 98.9 Pulse 80 88 Resp 18 18 B/P (MAP) 102/52 (69) 104/60 (75) Pulse Ox 100 100 100 O2 Delivery Ventilator Ventilator Mechanical Ventilator Ventilator O2 Flow Rate 100.0 07/20/20 07/20/20 07/20/20 07/20/20 18:00 19:00 19:30 20:00 Temp 99.6 99.6 Pulse 88 84 80 82 Resp 18 18 18 18 B/P (MAP) 95/68 (77) 96/84 (88) 84/68 (73) 90/74 (79) Pulse Ox 99 100 100 100 O2 Delivery Ventilator Ventilator Ventilator Ventilator 07/20/20 07/20/20 07/20/20 07/20/20 20:00 20:28 20:30 21:00 Pulse 80 86 Resp 18 18 B/P (MAP) 82/72 (75) 108/90 (96) Pulse Ox 100 100 100 O2 Delivery Mechanical Ventilator Ventilator Ventilator Ventilator 07/20/20 07/20/20 07/20/20 07/20/20 21:30 22:00 22:15 22:30 Pulse 74 76 74 Resp 18 18 18 B/P (MAP) 94/74 (81) 134/56 (82) 78/66 (70) Pulse Ox 100 100 100 100 O2 Delivery Ventilator Ventilator Ventilator Ventilator 07/20/20 07/20/20 07/20/20 07/21/20 23:00 23:30 23:59 00:00 Temp 99.6 99.6 Pulse 74 76 76 Resp 18 18 18 B/P (MAP) 106/56 (73) 124/64 (84) 92/80 (84) Pulse Ox 100 100 100 O2 Delivery Ventilator Ventilator Mechanical Ventilator Ventilator 07/21/20 07/21/20 07/21/20 07/21/20 00:18 00:30 01:00 01:30 Pulse 78 78 78 Resp 18 18 18 B/P (MAP) 102/90 (94) 136/58 (84) 140/58 (85) Pulse Ox 100 100 100 100 O2 Delivery Ventilator Ventilator Ventilator Ventilator 07/21/20 07/21/20 07/21/20 07/21/20 01:37 02:00 02:07 02:10 Pulse 78 Resp 18 18 B/P (MAP) 116/42 (66) Pulse Ox 100 100 100 100 O2 Delivery Ventilator Ventilator Ventilator O2 Flow Rate 100.0 07/21/20 07/21/20 07/21/20 07/21/20 02:30 03:00 03:30 04:00 Pulse 82 72 68 Resp 18 18 18 B/P (MAP) 114/44 (67) 132/48 (76) 112/42 (65) Pulse Ox 100 100 100 O2 Delivery Ventilator Ventilator Ventilator Mechanical Ventilator 07/21/20 07/21/20 07/21/20 07/21/20 04:00 04:14 04:30 05:00 Temp 99.8 99.8 Pulse 78 72 74 Resp 18 18 18 B/P (MAP) 144/54 (84) 120/52 (74) 108/40 (62) Pulse Ox 100 100 100 100 O2 Delivery Ventilator Ventilator Ventilator Ventilator 07/21/20 07/21/20 07/21/20 07/21/20 05:30 05:45 06:00 07:35 Pulse 74 76 Resp 18 18 B/P (MAP) 108/40 (62) 110/46 (67) Pulse Ox 100 100 100 100 O2 Delivery Ventilator Ventilator Ventilator Ventilator Intake and Output 07/20/20 07/20/20 07/21/20 15:00 23:00 07:00 Intake Total 0 ml 398 ml 263 ml Output Total 610 ml 755 ml 170 ml Balance -610 ml -357 ml 93 ml Justicifation of Admission Dx: Justifications for Admission: Justification of Admission Dx: N/A ANUEL BOLES MD Jul 21, 2020 08:52
[2020-07-21] MEDS: ELECTROLYTE (ICU) PROTOCOL. MC SCH (09:00)
[2020-07-21] MEDS: MIDAZOLAM 100mg/100ml NS BAG 100 ML IV PRN (09:05)
[2020-07-21] MEDS: FAMOTIDINE 20 MG/2 ML VIAL IVP SCH (09:45)
[2020-07-21] MEDS: levETIRAcetam 500 MG in IV DEXTROSE 5% 100ML 100 ML IV SCH ×2 (09:46→20:50)
[2020-07-21] MEDS: POTASSIUM CHLORIDE 20MEQ 100 ML IV SCH ×2 (10:12→11:05)
[2020-07-21] MEDS: MAGNESIUM SULFATE 4GM 100 ML IV SCH (12:53)
--- NOTE | 2020-07-21 15:44 | NUR ---
SS following for discharge planning. SS reviewed pt chart and discussed with pt RN. Pt is from home alone and is currently on the vent at 45%. Pt on Versed and Fentanyl. DNR. Continued seizure activity. Possible withdrawal of care over the weekend. SS will continue to follow for discharge planning.
--- NOTE | 2020-07-21 20:00 | NUR ---
Patient has right radial arterial line for close monitoring of BP and lab draws. Arterial BP will be documented hourly under Vital signs intervention and Q4HRS under Arterial line intervention to avoid duplicate charting. Addendum: 07/21/20 at 2039 by DIAZ SWANSON RN Amended: Links added.
[2020-07-21] MEDS ORDERED: ACETAMINOPHEN 650 MG SUPP.RECT. PR PRN (20:15)
[2020-07-22] VITALS (10 sets, daily range): BP systolic 48–130; BP diastolic 31–68
[2020-07-22] MEDS: IV NORMAL SALINE 1000ML BAG 1,000 ML IV SCH (06:04)
[2020-07-22] MEDS: ELECTROLYTE (ICU) PROTOCOL. MC SCH (09:00)
[2020-07-22] MEDS: levETIRAcetam 500 MG in IV DEXTROSE 5% 100ML 100 ML IV SCH (09:00)
[2020-07-22] MEDS: FAMOTIDINE 20 MG/2 ML VIAL IVP SCH (09:00)
[2020-07-22] MEDS: MAGNESIUM SULFATE 4GM 100 ML IV SCH (09:00)
--- NOTE | 2020-07-22 11:07 | NUR ---
Family at bedside w EOL decision. Relayed to Dr Farfan along w comfort care meds. Orders noted. No am meds administered after family decision. Sedation off approx [address] Sales w restar after conversation w Dr Farfan.[id number] extubation per RT Henny. Passed 1036 w pronunciation per 2 RNs as indicated by protocol. [facility] notified of arrangement needs. Family contact is Jt-son. No personal belongings or jewelry on /with patient. Son took belongings home 07/21. [employer] informed. Body to susan.
--- NOTE | 2020-07-22 13:06 | PDOC ---
GENERAL General: Discharge summary [id number] VITAL SIGNS Vital Signs/I&O: Vital Signs Date Time Temp Pulse Resp B/P (MAP) Pulse Ox O2 Delivery O2 Flow Rate FiO2 07/22/20 10:20 Room Air 07/22/20 10:00 14 48/ 100 07/22/20 09:00 72 07/22/20 08:00 98.2 98.2 07/21/20 13:42 40.0 I & O 07/21/20 07/21/20 07/22/20 15:00 23:00 07:00 Intake Total 405 ml 999 ml 895 ml Output Total 170 ml 210 ml 140 ml Balance 235 ml 789 ml 755 ml ALLERGIES Allergies: Allergies Coded Allergies Type Severity Reaction Last Updated Verified Penicillins Allergy Intermediate 01/01/18 Yes MEDS Medications: Current Medications Medications (Trade) Dose Ordered Sig/Patito Route PRN Reason Start Time Stop Time Status Last Admin Dose Admin Acetaminophen (Tylenol Supp) 650 mg PRN Q6HRS PRN DC MILD PAIN / TEMP > 100.3'F 07/21/20 20:15 07/22/20 12:01 DC 07/21/20 20:19 Justifications for Admission Other Justification Post Code Nutrition Consultation Dietary Evaluation: Recommendations by RD: Dietary education by RD Expected Outcomes/Goals: d/c care planned for 07/22 Malnutrition Findings: Body Fat Depletion (Non Severe: Mild Depletion Weight Status: Underweight PAULINO KING MD Jul 22, 2020 13:06
--- NOTE | 2020-07-22 20:26 | DS ---
DATE OF DISCHARGE: 07/22/2020 HOSPITAL COURSE: An 85-year-old woman who was a continuity outpatient of Dr. Nate Cruz who uses the [facility] hospitalist here at [facility]. I am rounding for them this weekend. The patient had a known history of cardiomyopathy and drove herself to [facility] on the day of admission, presumably with acute symptoms and was found unresponsive down lying in the parking lot coming into the emergency room having hit her head and face. She underwent a code blue and was resuscitated for 15 minutes before return of spontaneous circulation. She was intubated and transferred to the [facility] 3 days ago for further care. The patient did not recover and after lengthy conversations with family, she was terminally extubated this morning. She quickly after her extubation. Time of was 10:20 a.m. Physical exam was notable for that the patient was already actively dying. On my assessment this morning, she was unresponsive, extubated and heart rate was in the 30s. She did appear comfortable. FINAL DIAGNOSES: Cardiac arrest, status post code blue resuscitative efforts, the patient did not survive her resuscitation. PRESUMED CAUSE OF : Cardiac arrest. TIMOTEO DR: Ann TID: [id number] CC: NATE CRUZ MD [facility]
[2021-07-21] MEDS ORDERED: MAGNESIUM SULFATE 4GM 100 ML IV SCH (12:00)
== END 2020-07-22 11:45 | DRG 208 ==
LOC: 1 WEST ICU 11:00
PROVIDERS: ADMIT Family Medicine; ATTEND Family Medicine
PROC: 5A1945Z Respiratory Ventilation, 24-96 Consecutive Hours (ICD-10-PCS; principal; 2020-07-20)
PROC: 0BH17EZ Insertion of Endotracheal Airway into Trachea, Via Natural or Artificial Opening (ICD-10-PCS; 2020-07-20)
DX: J96.00 Acute respiratory failure, unspecified whether with hypoxia or hypercapnia (principal); I50.23 Acute on chronic systolic (congestive) heart failure; E87.2 Acidosis; G93.1 Anoxic brain damage, not elsewhere classified; I42.8 Other cardiomyopathies; N17.9 Acute kidney failure, unspecified; I46.9 Cardiac arrest, cause unspecified; D64.9 Anemia, unspecified; E11.9 Type 2 diabetes mellitus without complications; E78.5 Hyperlipidemia, unspecified; I11.0 Hypertensive heart disease with heart failure; I25.10 Atherosclerotic heart disease of native coronary artery without angina pectoris; I71.2 Thoracic aortic aneurysm, without rupture; I71.4 Abdominal aortic aneurysm, without rupture; M41.9 Scoliosis, unspecified; R56.9 Unspecified convulsions; S01.01XA Laceration without foreign body of scalp, initial encounter; Z66 Do not resuscitate; Z80.0 Family history of malignant neoplasm of digestive organs; Z82.5 Family history of asthma and other chronic lower respiratory diseases; Z86.79 Personal history of other diseases of the circulatory system; F41.9 Anxiety disorder, unspecified; Z88.0 Allergy status to penicillin; I95.9 Hypotension, unspecified; W18.39XA Other fall on same level, initial encounter; Y93.89 Activity, other specified; Y92.89 Other specified places as the place of occurrence of the external cause; Y99.8 Other external cause status
CPT/HCPCS: 36415; 36556; 36600; 71045; 76937; 80048; 80053; 82805; 83605; 83735; 84484; 85007; 85025; 85610; 94003; C1892; J1953; J2060; J2250; J3010; J3475; J3480; J3490; J7030; J7060; G0378